=== PATIENT | female | born 1945 | race Caucasian/White ===

== ENCOUNTER → 2016-04-26 | Outpatient (REF) | payer MEDICARE | LOC: M LAB REF 16:30 | PROVIDERS: ATTEND Internal Medicine | DX: F03.90 Unspecified dementia, unspecified severity, without behavioral disturbance, psychotic disturbance, mood disturbance, and anxiety (principal) ==

== ENCOUNTER → 2017-04-08 | Outpatient (REF) | payer MEDICARE | LOC: M LAB REF 15:55 | DX: H16.003 Unspecified corneal ulcer, bilateral (principal) | CPT/HCPCS: 87102 ==

== ENCOUNTER 2018-07-14 11:13 | Emergency (ER) | payer MEDICARE, MEDICAID ==
[~2018-07-14] VITALS: Ht 154.9 cm; Wt 58.6 kg
[2018-07-14] MEDS ORDERED: CLAR10CA3 PO (12:01)
[2018-07-14] MEDS ORDERED: ARIC1TAB PO (12:01)
[2018-07-14] MEDS ORDERED: MEMA1TAB2 PO (12:02)
[2018-07-14] MEDS ORDERED: ATOR1TAB19 PO (12:02)
[2018-07-14] MEDS ORDERED: TRAZ-252 PO (12:02)
[2018-07-14] MEDS ORDERED: NYSTOI TOP (12:02)
[2018-07-14 12:08] LABS: BASO % 0.3 % (0.0-1.0); EOS % 0.1 % (0.0-3.0); HEMATOCRIT 40.3 % (36.0-47.0); HEMOGLOBIN 13.6 g/dl (12.0-15.5); LYMPH # 1.5 10^3/uL (1.5-4.5); LYMPH % 15.4 % (24.0-44.0); MEAN CORPUSCULAR HEMOGLOBIN 32.5 pg (27.0-33.0); MEAN CORPUSCULAR HGB CONC 33.7 g/dl (32.0-36.5); MEAN CORPUSCULAR VOLUME 96.2 fl (80.0-96.0); MONO # 0.4 10^3/uL (0.0-0.8); MONO % 4.4 % (0.0-5.0); NEUTROPHILS # 7.6 10^3/uL (1.8-7.7); NEUTROPHILS % 79.5 % (36.0-66.0); PLATELET COUNT, AUTOMATED 245 10^3/uL (150-450); RED BLOOD COUNT 4.19 10^6/uL (4.00-5.40); WHITE BLOOD COUNT 9.5 10^3/uL (4.0-10.0)
[2018-07-14 12:46] LABS: ALBUMIN 3.4 GM/DL (3.2-5.2); ALT/SGPT 12 U/L (12-78); BILIRUBIN,DIRECT 0.1 MG/DL (0.0-0.2); BILIRUBIN,TOTAL 0.6 MG/DL (0.2-1.0); BLOOD UREA NITROGEN 23 MG/DL (7-18); CALCIUM LEVEL 8.4 MG/DL (8.8-10.2); CARBON DIOXIDE LEVEL 26 MEQ/L (21-32); CHLORIDE LEVEL 107 MEQ/L (98-107); CPK CREATINE PHOSPHOKINASE 60 U/L (26-192); CREATININE FOR GFR 0.82 MG/DL (0.55-1.30); GLOMERULAR FILTRATION RATE > 60.0 (>39); GLUCOSE, FASTING 119 MG/DL (70-100); MB/CK RELATIVE INDEX 1.67 (< OR =4); POTASSIUM SERUM 3.8 MEQ/L (3.5-5.1); SODIUM LEVEL 140 MEQ/L (136-145); TOTAL PROTEIN 7.3 GM/DL (6.4-8.2); TROPONIN I < 0.02 NG/ML (< 0.10)
--- NOTE | 2018-07-14 13:01 | REP ---
Noncontrast brain CT: History: Altered mental status. Comparison MRI study is from April 30, 2016. CT findings: Preliminary digital house mother radiograph is unremarkable. Bone window settings demonstrate an intact bony calvarium. There is moderate vascular calcification in the distal vertebral and carotid arteries bilaterally. Visualized paranasal sinuses are clear. No intraorbital abnormality is seen. On soft tissue window settings, there is moderate diffuse cerebral atrophy. Small vessel atherosclerotic changes are seen in the periventricular white matter of the supratentorial brain bilaterally. There is concordant ventriculomegaly. Volume loss in the ventricular size findings are unchanged. There is no evidence of intracranial hemorrhage. No acute infarction is seen. No mass, extra-axial fluid collection or midline shift is seen. Impression: Diffuse moderate atrophy. Small vessel atherosclerotic changes in the periventricular white matter. Vascular calcification. No acute intracranial lesion. Electronically Signed by James Hilton MD 07/14/2018 06:26 P
[2018-07-14] MEDS ORDERED: ALL10TAB28 PO (15:15)
[2018-07-14] MEDS ORDERED: MECL1CHW PO (15:15)
[2018-07-14 15:34] VITALS: BP 118/65
--- NOTE | 2018-07-15 17:37 | ECGEPIP ---
Stationary ECG Study [facility] - ED Test Date: 2018-07-14 Pat Name: JAYE EDEN Department: Room: - Gender: F Raspberry Checker: bibi : [id number] Requested By: Tootie Solis Order Number: [id number] Reading MD: Tootie Solis Measurements Intervals [place] Rate: 49 P: 42 [place]: 144 QRS: 23 QRSD: 89 T: 7 QT: 435 QTc: 396 Interpretive Statements SINUS BRADYCARDIA MINIMAL ST DEPRESSION NO PRIOR FOR COMPARISON Electronically Signed On 07-15-2018 17:37:13 EDT by Tootie Solis
== END 2018-07-14 15:36 | disposition home or self-care (01) ==
LOC: M ED 11:13
DX: R42 Dizziness and giddiness (principal); J30.2 Other seasonal allergic rhinitis; R00.1 Bradycardia, unspecified; Z86.79 Personal history of other diseases of the circulatory system; F03.90 Unspecified dementia, unspecified severity, without behavioral disturbance, psychotic disturbance, mood disturbance, and anxiety; G31.9 Degenerative disease of nervous system, unspecified; I67.2 Cerebral atherosclerosis; Z79.899 Other long term (current) drug therapy

== ENCOUNTER 2020-01-04 19:46 | Inpatient (IN) | payer MEDICARE, MEDICAID ==
[~2020-01-04] VITALS: Ht 154.9 cm; Wt 54.3 kg
[~2020-01-04 19:46] MED LIST: ARIC1TAB PO; ATOR1TAB19 PO; CETI-24 PO; CLAR10CA3 PO; MECL1CHW PO; MEMA10TA19 PO; NYSTOI TOP; TRAZ-252 PO
[2020-01-04] MEDS ORDERED: ZYPR10TA PO (20:08)
[2020-01-04 21:17] LABS: HEMATOCRIT 37.5 % (36.0-47.0); HEMOGLOBIN 12.3 g/dl (12.0-15.5); MEAN CORPUSCULAR HEMOGLOBIN 31.3 pg (27.0-33.0); MEAN CORPUSCULAR HGB CONC 32.8 g/dl (32.0-36.5); MEAN CORPUSCULAR VOLUME 95.4 fl (80.0-96.0); PLATELET COUNT, AUTOMATED 222 10^3/uL (150-450); RED BLOOD COUNT 3.93 10^6/uL (4.00-5.40); WHITE BLOOD COUNT 7.8 10^3/uL (4.0-10.0)
--- NOTE | 2020-01-04 21:40 | REPVR ---
PROCEDURE INFORMATION: Exam: CT Cervical Spine Without Contrast Exam date and time: 01/04/2020 8:54 PM Age: 74 years old Clinical indication: Injury or trauma; Fall; Blunt trauma; Additional info: Fall, facial swelling TECHNIQUE: Imaging protocol: Computed tomography images of the cervical spine without contrast. Radiation optimization: All CT scans at this facility use at least one of these dose optimization techniques: automated exposure control; mA and/or kV adjustment per patient size (includes targeted exams where dose is matched to clinical indication); or iterative reconstruction. COMPARISON: No relevant prior studies available. FINDINGS: Vertebrae: No acute fracture. Grade 1 spondylolisthesis at C4-C5 with 2 mm retrolisthesis C5 with respect to C4. Grade 1 spondylolisthesis at C5-C6 with 2 anterolisthesis C6 with respect to C5 C2-C3: No significant disc protrusion. No severe spinal canal stenosis. No significant neural foraminal narrowing. C3-C4: No significant disc protrusion. No severe spinal canal stenosis. No significant neural foraminal narrowing. C4-C5: No significant disc protrusion. No severe spinal canal stenosis. No significant neural foraminal narrowing. C5-C6: Marked narrowing of the intervertebral disc space. Uncovertebral hypertrophy bilaterally moderate to severe right foraminal stenosis. Mild left foraminal stenosis.. No severe spinal canal stenosis. C6-C7: No significant disc protrusion. No severe spinal canal stenosis. No significant neural foraminal narrowing. C7-T1: No significant disc protrusion. No severe spinal canal stenosis. No significant neural foraminal narrowing. Soft tissues: Asymmetric thickening left lateral pharyngeal wall. Auditory system: Debris noted within the external auditory canal on the left Oropharynx: Oropharynx. Lungs: Lung apices are normal. IMPRESSION: 1. No acute findings. 2. Degenerative disc disease most severe at C5-C6. Bilateral foraminal stenosis. No central stenosis. 3. Asymmetric soft tissue thickening along the left lateral wall of the oropharynx. Direct visualization recommended. Electronically signed by: Danae Ramírez On 01/04/2020 21:39:53 PM
--- NOTE | 2020-01-04 21:44 | REPVR ---
PROCEDURE INFORMATION: Exam: CT Head Without Contrast Exam date and time: 01/04/2020 8:54 PM Age: 74 years old Clinical indication: Injury or trauma; Fall; Blunt trauma (contusions or hematomas); Additional info: Fall, facial swelling TECHNIQUE: Imaging protocol: Computed tomography of the head without contrast. Radiation optimization: All CT scans at this facility use at least one of these dose optimization techniques: automated exposure control; mA and/or kV adjustment per patient size (includes targeted exams where dose is matched to clinical indication); or iterative reconstruction. COMPARISON: CT Head without contrast 07/14/2018 11:14 AM FINDINGS: Brain: Severe generalized cerebral atrophy. Basal ganglia calcifications. Cerebellar atrophy. Patchy low-density in the periventricular white matter extending into the vargas radiata and the centrum semiovale bilaterally. No hemorrhage. No mass effect. Midline structures intact. Cerebral ventricles: No ventriculomegaly. Bones/joints: A fracture of the left nasal bone. Paranasal sinuses: Partial opacification of the ethmoid air cells bilaterally. Mastoid air cells: Visualized mastoid air cells are well aerated. Soft tissues: There is focal area soft tissue swelling over the right frontal bone. IMPRESSION: 1. No acute intracranial findings. 2. Advanced cerebral atrophy with advanced chronic microvascular ischemic change within the deep white matter 3. Fracture of the left nasal bone. 4. Superficial contusion suggested over the right frontal 5. Chronic ethmoid sinusitis Electronically signed by: Danae Ramírez On 01/04/2020 21:44:21 PM
--- NOTE | 2020-01-04 21:48 | REPVR ---
PROCEDURE INFORMATION: Exam: CT Maxillofacial Without Contrast Exam date and time: 01/04/2020 8:54 PM Age: 74 years old Clinical indication: Injury or trauma; Fall; Blunt trauma (contusions or hematomas); Forehead; Additional info: Fall, facial swelling TECHNIQUE: Imaging protocol: Computed tomography images of the face without contrast. Radiation optimization: All CT scans at this facility use at least one of these dose optimization techniques: automated exposure control; mA and/or kV adjustment per patient size (includes targeted exams where dose is matched to clinical indication); or iterative reconstruction. COMPARISON: No relevant prior studies available. FINDINGS: Orbital cavity: Orbits are normal. Globes are unremarkable. Bones/joints: Fracture of the left nasal bone. Paranasal sinuses: Patchy opacification of the ethmoid air cells bilaterally. Auditory system: Debris within the left external auditory canal. Soft tissues: Focal area soft tissue swelling over the right frontal bone. IMPRESSION: 1. Fracture of the left nasal bone. 2. Contusion over the right frontal bone. 3. Chronic ethmoid sinusitis. Electronically signed by: Danae Ramírez On 01/04/2020 21:48:12 PM
[2020-01-04] MEDS ORDERED: D5W 1,000 ML IV SCH ×2 (23:00→23:45)
[2020-01-04] MEDS ORDERED: ACETAMINOPHEN TAB 650MG DOSE (2X325MG) PO PRN (23:45)
[2020-01-04] MEDS ORDERED: PILL CUTTER 1 EACH XX PRN (23:45)
[2020-01-04] MEDS ORDERED: MAALOX 30 ML SUSP *UDC PO PRN (23:45)
[2020-01-04] MEDS ORDERED: LORATADINE 10 MG TAB PO PRN (23:45)
[2020-01-05 00:36] VITALS: BP 136/88
[2020-01-05] MEDS: OLANZapine 10 MG TAB PO SCH ×3 (01:23→20:23)
[2020-01-05] MEDS: DOCUSATE SODIUM 100 MG CAP PO SCH ×3 (01:24→20:23)
[2020-01-05] MEDS: traZODone 50 MG TAB PO SCH ×2 (01:25→20:23)
--- NOTE | 2020-01-05 01:25 | HPEPDOC ---
[facility] Medical History & Physical Date of Admission Jan 04, 2020 Date of Service: Jan 04, 2020 Primary Care Physician: YANNA DONIS DO Attending Physician: SARAI KRISHNA MD History and Physical CHIEF COMPLAINT: Fall HISTORY OF PRESENT ILLNESS: Patient is a 74-year-old female with a history of advanced dementia who presents to the emergency department after a fall. Patient was in the bathroom with one of her caretakers when she went to stand up and get her pants back on when she started leaning over and fell. The carpenter helper try to catch her but was unable to and she hit her face on the wall. The patient is unable to provide any history. Patient's son was present in the room and was able to provide most of the history. Patient's son says that she has been not eating that much and has been a little bit more wobbly on her feet over the past few days. Patient's son states that she has lost some weight over the past few days as well. Patient was found to be hypernatremic in the emergency department and hospitalist was called for admission. Patient was also found to have a nasal fracture on maxillofacial CT. PAST MEDICAL HISTORY: 1. History of hypertension. 2. Advanced dementia. 3. Seasonal allergies. PAST SURGICAL HISTORY: Son states that he is unsure exactly how many surgeries his mother has had but he knows that she had a partial hysterectomy at some point many years ago. SOCIAL HISTORY: Son states that his mother never smoked cigarettes, never drank heavily and never did any illicit drug use. Patient lives at home with her son. FAMILY HISTORY: Unable to obtain from patient ALLERGIES: Please see below. REVIEW OF SYSTEMS: Unable to obtain from patient. In talking with the patient's son he says his mom has not been complaining of anything other than some lower abdominal pain and she had not had a bowel movement in a few days. HOME MEDICATIONS: Please see below. PHYSICAL EXAMINATION: VITAL SIGNS: See below General: Alert but not oriented female who is laying in bed when I walked in the room. Patient did not appear to be in any acute distress. HEENT: Normocephalic, patient had a bruise of the bridge of her nose as well as a bruise on the right forehead. Neck: No lymphadenopathy or thyromegaly Cardiac: Regular rate and rhythm, no murmurs, normal S1, normal S2 Pulm: Clear to auscultation bilaterally. No wheezes, rhonchi, rales Abd: Nondistended, mild tenderness to palpation of the left lower quadrant. No rebound tenderness. Normoactive bowel sounds Ext: No edema bilateral lower extremities Skin: No evidence of rash. LABORATORY DATA: See below. IMAGING: A CT maxillofacial without contrast performed on 01/04/2020 was reported to show a fracture left nasal bone, contusion over the right frontal bone, chronic ethmoid sinusitis. A CT of the head performed without contrast 01/04/2020 was reported to show no acute intracranial findings, advanced cerebral atrophy with advanced chronic microvascular ischemic changes within the deep white matter. Fracture of the left nasal bone, superficial contusions suggested over the right frontal bone, chronic ethmoid sinusitis A CT of the cervical spine performed without contrast on 01/04/2020 was reported to show no acute findings, degenerative disc disease most severe at C5-C6. Bilateral foraminal stenosis, no central stenosis, asymmetric soft tissue thickening along the left lateral wall of the oropharynx, direct visualization recommended MICROBIOLOGY: Please see below. ASSESSMENT: Patient is a 74-year-old female who presented to the emergency department after a fall and was found to have a left nasal fracture. Patient was also found to be hypernatremic on lab studies of the patient was admitted in the hospital for further management. Patient's son is her healthcare proxy and he can be reached at [phone]. The patient's son's name is Luisito Mckeon PLAN: 1. Hypernatremia. Patient's initial sodium level was 157. Patient was initially started on D5W at 80 mL per hour. We are waiting for repeat laboratory work so we can titrate the amount of fluids patient is on. We'll monitor the patient's sodium level closely as to not cause cerebral edema. Due to the patient's dementia, is difficult to assess any changes in the patient's mental status h owever, the patient's son says that she is slightly worse than her normal. 2. Dementia. Patient is not oriented and can only answer simple questions. Patient is only on olanzapine for behavioral issues. This medication. 3. History of hypertension. Patient was taken off all her medications by her [facility] provider according to her son. We will monitor patient's blood pressure closely. 4. Left nasal bone fracture. At this point the patient's nose appears straight and does not appear to Be blocking her airway. This point we will just do pain control with Tylenol. 5. DVT prophylaxis: Heparin 6. CODE STATUS: Full code. Addendum: After the patient got up to the medical surgical floor, a repeat basic metabolic profile was obtained and showed that the patient's sodium level was within the normal range. The initial sodium level that was performed was a [id number] test. Because of the lab chemistry panel being within normal range, patient does not appear to be hypernatremic. Fluids were stopped at this time. Vital Signs Vital Signs Date Time Temp Pulse Resp B/P (MAP) Pulse Ox O2 Delivery O2 Flow Rate FiO2 01/05/20 00:36 97.9 72 18 136/88 (104) 97 Room Air Laboratory Data Labs 24H Laboratory Tests 2 01/04/20 21:06: Nucleated Red Blood Cells % (auto) 0.0 01/04/20 21:24: POC Glucose (Misc Panel) 89, POC Sodium (Misc Panel) 157H, POC Potassium (Misc Panel) 3.8, POC Chloride (Misc Panel) 100, POC Total CO2 (Misc Panel) 26.0, POC Blood Urea Nitrogen (Misc Panel 26, POC Ionized Calcium (Misc Panel) 5.3, POC Creatinine (Misc Panel) 0.9, POC Hematocrit (Misc Panel) 38.0 01/04/20 23:24: Urine Color STRAW, Urine Appearance HAZY, Urine pH 7.0, Urine Specific [place] 1.015, Urine Protein NEGATIVE, Urine Glucose (UA) NEGATIVE, Urine Ketones NEGATIVE, Urine Blood NEGATIVE, Urine Nitrite NEGATIVE, Urine Bilirubin NEG ATIVE, Urine Urobilinogen 0.2, Urine Leukocyte Esterase NEGATIVE, Urine WBC (Auto) 1, Urine RBC (Auto) 2, Urine Hyaline Casts (Auto) 0, Urine Bacteria (Auto) NEGATIVE, Urine Squamous Epithelial Cells 0, Urine Mucus (Auto) SMALL, Urine Sperm (Auto) CBC/BMP Laboratory Tests 01/04/20 21:06 Home Medications Scheduled Atorvastatin Calcium (Atorvastatin Calcium) 10 Mg Tablet, 10 MG PO DAILY Olanzapine (Zyprexa) 10 Mg Tablet, 10 MG PO BID Trazodone HCl (Trazodone HCl) 50 Mg Tablet, 75 MG PO QPM Scheduled PRN Loratadine (Claritin) 10 Mg Capsule, 10 MG PO DAILY PRN for allergies Allergies Coded Allergies: No Known Allergies (Unverified , 01/04/20) A-FIB/CHADSVASC A-FIB History Current/History of A-Fib/PAF?: No GME ATTESTATION GME ATTESTATION My faculty preceptor for this patient encounter was physically present during the encounter and was fully available. All aspects of the patient interview, examination, medical decision making process, and medical care plan development were reviewed and approved by the faculty preceptor. The faculty preceptor is aware and concurs with the plan as stated in the body of this note and will attest to such by his/her cosignature. RORO CRUZ DO Jan 05, 2020 01:25
[2020-01-05 02:19] LABS: BLOOD UREA NITROGEN 21 MG/DL (7-18); CARBON DIOXIDE LEVEL 24 MEQ/L (21-32); CHLORIDE LEVEL 107 MEQ/L (98-107); CREATININE FOR GFR 0.74 MG/DL (0.55-1.30); GLOMERULAR FILTRATION RATE > 60.0 (>39); GLUCOSE, FASTING 130 MG/DL (70-100); POTASSIUM SERUM 3.4 MEQ/L (3.5-5.1); SODIUM LEVEL 138 MEQ/L (136-145)
[2020-01-05 06:00] VITALS: BP 140/78
[2020-01-05] MEDS ORDERED: POTASSIUM CHLORIDE 10% LIQ 20 MEQ/15 ML UDC PO ONE (06:15)
[2020-01-05 06:39] LABS: BASO % 0.3 % (0.0-1.0); EOS % 0.3 % (0.0-3.0); HEMATOCRIT 40.2 % (36.0-47.0); HEMOGLOBIN 13.6 g/dl (12.0-15.5); LYMPH # 1.8 10^3/uL (1.5-5.0); LYMPH % 21.4 % (24.0-44.0); MEAN CORPUSCULAR HEMOGLOBIN 31.9 pg (27.0-33.0); MEAN CORPUSCULAR HGB CONC 33.8 g/dl (32.0-36.5); MEAN CORPUSCULAR VOLUME 94.1 fl (80.0-96.0); MONO # 0.4 10^3/uL (0.0-0.8); NEUTROPHILS # 6.2 10^3/uL (1.5-8.5); NEUTROPHILS % 72.8 % (36.0-66.0); PLATELET COUNT, AUTOMATED 221 10^3/uL (150-450); RED BLOOD COUNT 4.27 10^6/uL (4.00-5.40); WHITE BLOOD COUNT 8.6 10^3/uL (4.0-10.0)
[2020-01-05 06:55] LABS: BLOOD UREA NITROGEN 18 MG/DL (7-18); CALCIUM LEVEL 8.7 MG/DL (8.8-10.2); CARBON DIOXIDE LEVEL 29 MEQ/L (21-32); CHLORIDE LEVEL 105 MEQ/L (98-107); CREATININE FOR GFR 0.79 MG/DL (0.55-1.30); GLOMERULAR FILTRATION RATE > 60.0 (>39); GLUCOSE, FASTING 109 MG/DL (70-100); POTASSIUM SERUM 3.6 MEQ/L (3.5-5.1); SODIUM LEVEL 137 MEQ/L (136-145)
[2020-01-05] MEDS: HEPARIN SOD (PORCINE) 5000UNITS/ML 1ML VIAL/SYRINGE SC SCH ×2 (11:20→20:23)
[2020-01-05] MEDS: ATORVASTATIN 10 MG TAB PO SCH (11:20)
[2020-01-05 14:00] VITALS: BP 124/75
[2020-01-05] MEDS ORDERED: MIRALAX *UNIT DOSE* 17GM PACKET PO PRN (18:15)
--- NOTE | 2020-01-05 18:51 | IPNPDOC ---
Date Seen The patient was seen on 01/05/20. Progress Note SUBJECTIVE: Assessed by PT, can return to prior living situation when medically cleared. Sodium wnl this AM. Very confused; however, after speaking with son and caregiver this is baseline. Addressing constipation. OBJECTIVE: PHYSICAL EXAMINATION: VITAL SIGNS: See below General: Alert, not oriented to place, reason for admission, time, date, self. HEENT: Normocephalic, patient had a bruise of the bridge of her nose as well as a bruise on the right forehead. Small laceration on the bridge of her nose also Neck: No lymphadenopathy or thyromegaly, no JVD Cardiac: Regular rate and rhythm, no murmurs, normal S1, normal S2 Pulm: Clear to auscultation bilaterally. No wheezes, rhonchi, rales Abd: Nondistended, mild tenderness to palpation of the left lower quadrant. No rebound tenderness. Normoactive bowel sounds Ext: No edema bilateral lower extremities Skin: No evidence of rash. neuro: Would not participate in CN exam, does not follow directions well. Nofocal deficits Psych: Flat affect LABORATORY DATA: See below. IMAGING: CT maxillofacial without contrast performed on 01/04/2020: fracture left nasal bone, contusion over the right frontal bone, chronic ethmoid sinusitis. CT of the head performed without contrast 01/04/2020: no acute intracranial findings, advanced cerebral atrophy with advanced chronic microvascular ischemic changes within the deep white matter. Fracture of the left nasal bone, superficial contusions suggested over the right frontal bone, chronic ethmoid sinusitis CT of the cervical spine performed without contrast on 01/04/2020: No acute findings, degenerative disc disease most severe at C5-C6. Bilateral foraminal stenosis, no central stenosis, asymmetric soft tissue thickening along the left lateral wall of the oropharynx, direct visualization recommended MICROBIOLOGY: Please see below. ASSESSMENT: Patient is a 74-year-old female admitted for acute hypernatremia, fall, left nasal fracture. PLAN: 1. Acute hypernatremia likely 2/2 to decreased PO intake from advancing dementia -Sodium 137 this AM, decreased from 157. At this time we are highly suspicious that the POC test of 157 was likely to have read this too high. -She was on D5W at 80 mL per hour for only a short period of time then it was stopped. -Encouraging PO intake with fluids Q2hrs while awake -Daily sodium 2. Decreased appetite and PO intake likely 2/2 to advancing dementia -Eats very little, needs to be fed and prompted -Likely can be addressed with PCP after discharge, would benefit from cotton ball machine tender evaluation and also appetite stimulant if she can tolerate. -Encouraging PO intake with fluids Q2hrs while awake 3. Advanced dementia with behaviors -Currently at baseline -Her PCP, according to her son, has recently changed her dementia medications around. -C/w olanzapine, redirection whenever possible 4. Left nasal bone fracture -No surgery -C/w pain control with Tylenol PRN. 5. Hx hypertension -Stable. Taken off meds by PCP -Monitor 6. DVT prophylaxis - Heparin DISPOSITION: Her son Luisito was updated this evening. If labs ok by AM, will discharge home with son to f/u with PCP. PT: safe to return to prior living situation VS, I&O, 24H, Fishbone Vital Signs/I&O Vital Signs Date Time Temp Pulse Resp B/P (MAP) Pulse Ox O2 Delivery O2 Flow Rate FiO2 01/05/20 14:00 63 15 124/75 (91) 97 Room Air 01/05/20 06:00 97.4 I&O- Last 24 Hours up to 6 AM 01/05/20 06:00 Intake Total 150 ml Output Total 250 ml Balance -100 ml Laboratory Data 24H LABS Laboratory Tests 2 01/04/20 21:06: Nucleated Red Blood Cells % (auto) 0.0 01/04/20 21:24: POC Glucose (Misc Panel) 89, POC Sodium (Misc Panel) 157H, POC Potassium (Misc Panel) 3.8, POC Chloride (Misc Panel) 100, POC Total CO2 (Misc Panel) 26.0, POC Blood Urea Nitrogen (Misc Panel 26, POC Ionized Calcium (Misc Panel) 5.3, POC Creatinine (Misc Panel) 0.9, POC Hematocrit (Misc Panel) 38.0 01/04/20 23:24: Urine Color STRAW, Urine Appearance HAZY, Urine pH 7.0, Urine Specific [place] 1.015, Urine Protein NEGATIVE, Urine Glucose (UA) NEGATIVE, Urine Ketones NEGATIVE, Urine Blood NEGATIVE, Urine Nitrite NEGATIVE, Urine Bilirubin NEGATIVE, Urine Urobilinogen 0.2, Urine Leukocyte Esterase NEGATIVE, Urine WBC (Auto) 1, Urine RBC (Auto) 2, Urine Hyaline Casts (Auto) 0, Urine Bacteria (Auto) NEGATIVE, Urine Squamous Epithelial Cells 0, Urine Mucus (Auto) SMALL, Urine Sperm (Auto) 01/05/20 01:11: Anion Gap 7L, Glomerular Filtration Rate > 60.0, Calcium Level 9.0 01/05/20 06:13: Immature Granulocyte % (Auto) 0.2, Neutrophils (%) (Auto) 72.8H, Lymphocytes (%) (Auto) 21.4L, Monocytes (%) (Auto) 5.0, Eosinophils (%) (Auto) 0.3, Basophils (%) (Auto) 0.3, Neutrophils # (Auto) 6.2, Lymphocytes # (Auto) 1.8, Monocytes # (Auto) 0.4, Eosinophils # (Auto) 0.0, Basophils # (Auto) 0.0, Nucleated Red Blood Cells % (auto) 0.0, Anion Gap 3L, Glomerular Filtration Rate > 60.0, Calcium Level 8.7L, Magnesium Level 2.2 CBC/BMP Laboratory Tests 01/04/20 21:06 01/05/20 01:11 01/05/20 06:13 Current Medications Current Medications Medications (Trade) Dose Ordered Sig/Rina Route PRN Reason Start Time Stop Time Status Last Admin Dose Admin Acetaminophen (Tylenol Tab) 650 mg Q4H PRN PO PAIN OR FEVER 01/04/20 23:45 Al Hydrox/Mg Hydrox/Simethicone (Mylanta) 30 ml DAILY PRN PO DYSPEPSIA 01/04/20 23:45 Atorvastatin Calcium (Lipitor) 10 mg DAILY PO 01/05/20 09:00 01/05/20 11:20 Dextrose/Water 1,000 ml @ 80 mls/hr [id number] IV 01/04/20 23:00 01/04/20 23:52 DC 01/04/20 23:42 Dextrose/Water 1,000 ml @ 80 mls/hr [id number] IV 01/04/20 23:45 01/05/20 02:35 DC 01/05/20 01:23 Docusate Sodium (Colace) 100 mg BID PO 01/04/20 21:00 01/05/20 11:20 Heparin Sodium (Porcine) (Heparin) 5,000 units Q12H SC 01/05/20 09:00 01/05/20 11:20 Home Med (Med Rec Complete!) ASDIRECTED XX 01/04/20 23:45 01/04/20 23:43 DC Loratadine (Claritin) 10 mg DAILY PRN PO allergies 01/04/20 23:45 Olanzapine (ZyPREXA) 10 mg BID PO 01/04/20 21:00 01/05/20 11:20 Polyethylene Glycol (Miralax) 1 pkt DAILYPRN PRN PO CONSTIPATION 01/05/20 18:15 Senna (Senokot) 1 tab QHS PO 01/05/20 21:00 Trazodone HCl (Desyrel) 75 mg QPM PO 01/04/20 21:00 01/05/20 01:25 Allergies Coded Allergies: No Known Allergies (Unverified , 01/04/20) Lacy Velasco MD Jan 05, 2020 18:51
[2020-01-05] MEDS ORDERED: DOCU100C16 PO (18:58)
[2020-01-05] MEDS ORDERED: PEG1POW PO (18:58)
[2020-01-05] MEDS ORDERED: ACET1TAB55 PO (18:58)
[2020-01-05] MEDS: SENNA 8.6 MG TAB (SENOKOT) PO SCH (20:23)
[2020-01-05 22:00] VITALS: BP 144/82
[2020-01-06 06:00] VITALS: BP 148/80
[2020-01-06 06:15] LABS: BASO % 0.3 % (0.0-1.0); EOS # 0.1 10^3/uL (0.0-0.5); EOS % 0.8 % (0.0-3.0); HEMATOCRIT 41.1 % (36.0-47.0); HEMOGLOBIN 13.7 g/dl (12.0-15.5); LYMPH % 31.4 % (24.0-44.0); MEAN CORPUSCULAR HEMOGLOBIN 31.2 pg (27.0-33.0); MEAN CORPUSCULAR HGB CONC 33.3 g/dl (32.0-36.5); MEAN CORPUSCULAR VOLUME 93.6 fl (80.0-96.0); MONO # 0.4 10^3/uL (0.0-0.8); MONO % 6.1 % (0.0-5.0); NEUTROPHILS # 3.8 10^3/uL (1.5-8.5); NEUTROPHILS % 61.2 % (36.0-66.0); PLATELET COUNT, AUTOMATED 222 10^3/uL (150-450); RED BLOOD COUNT 4.39 10^6/uL (4.00-5.40); WHITE BLOOD COUNT 6.2 10^3/uL (4.0-10.0)
[2020-01-06 06:41] LABS: BLOOD UREA NITROGEN 17 MG/DL (7-18); CALCIUM LEVEL 8.8 MG/DL (8.8-10.2); CARBON DIOXIDE LEVEL 24 MEQ/L (21-32); CHLORIDE LEVEL 107 MEQ/L (98-107); CREATININE FOR GFR 0.87 MG/DL (0.55-1.30); GLOMERULAR FILTRATION RATE > 60.0 (>39); GLUCOSE, FASTING 107 MG/DL (70-100); MAGNESIUM LEVEL 2.3 MG/DL (1.8-2.4); SODIUM LEVEL 139 MEQ/L (136-145)
[2020-01-06] MEDS: HEPARIN SOD (PORCINE) 5000UNITS/ML 1ML VIAL/SYRINGE SC SCH ×2 (09:41→21:40)
[2020-01-06] MEDS: DOCUSATE SODIUM 100 MG CAP PO SCH ×2 (09:41→19:58)
[2020-01-06] MEDS: OLANZapine 10 MG TAB PO SCH (09:41)
[2020-01-06] MEDS: ATORVASTATIN 10 MG TAB PO SCH (09:41)
[2020-01-06] MEDS ORDERED: LACTULOSE 20 GM/30 ML SYRUP UD PO ONE (10:00)
[2020-01-06 14:00] VITALS: BP 138/76
--- NOTE | 2020-01-06 15:10 | DS.PDOC ---
Discharge Summary General Date of Admission Jan 04, 2020 at 23:12 Date of Discharge 01/06/20 Attending Physician: Lacy Velasco MD Discharge Summary HISTORY OF PRESENT ILLNESS: Patient is a 74-year-old female with a history of advanced dementia who presents to the emergency department after a fall. Patient was in the bathroom with one of her caretakers when she went to stand up and get her pants back on when she started leaning over and fell. The desk lieutenant try to catch her but was unable to and she hit her face on the wall. The patient is unable to provide any history. Patient's son was present in the room and was able to provide most of the history. Patient's son says that she has been not eating that much and has been a little bit more wobbly on her feet over the past few days. Patient's son states that she has lost some weight over the past few days as well. Patient was found to be hypernatremic in the emergency department and hospitalist was called for admission. Patient was also found to have a nasal fracture on maxillofacial CT. HOSPITAL COURSE: Upon arrival to the middle floor, sodium was found to be 137 and within normal range. D5 water IV fluids were stopped. Fluids were encouraged by mouth every 2 hours while awake. She also had to be helped eating as her appetite has been very poor in general for the past year or so. Spoke at great length with her son who states that they have not spoke with the primary care physician about her overall decline in the past several months more pronounced than over the past year. I expressed how my thoughts were that this was likely advancing dementia and that perhaps an appetite stimulant may be beneficial. As we do not follow these patients outside the hospital, I feel they're best bet would be to discuss with PCP who can follow her safely on an appetite stimulant. It also may be beneficial for her to have a nutritional assessment. Per physical therapy notes: She lives with her son who provides 24/7 supervision/assist, though has respite care and was with a caregiver when she fell. Jil is mostly sedentary at home. Her son wakes her up at 9:30-10 am and assists her with a shower and breakfast. He then assists her every 2 hours to the bathroom. He provides hand hold assist as she does not use the RW. Required max Ax2 for sup sit. We were unable to assist patient with sit > stand as she would not attempt. Significant right lateral lean sitting at EOB. Recommended Home w/Prev Level of Care. As acute hypernatremia had resolved and patient was believed to be at baseline, her son was updated. on 01/06/20 patient was discharged home to f/u with PCP as o/p. PAST MEDICAL HISTORY: 1. History of hypertension. 2. Advanced dementia. 3. Seasonal allergies. PAST SURGICAL HISTORY: Son states that he is unsure exactly how many surgeries his mother has had but he knows that she had a partial hysterectomy at some point many years ago. SOCIAL HISTORY: Son states that his mother never smoked cigarettes, never drank heavily and never did any illicit drug use. Patient lives at home with her son. FAMILY HISTORY: Unable to obtain from patient ALLERGIES: Please see below. DISCHARGE MEDICATIONS: Please see below. PHYSICAL EXAMINATION: VITAL SIGNS: See below General: Alert, not oriented to place, reason for admission, time, date, self- BASELINE HEENT: Normocephalic, patient had a bruise of the bridge of her nose as well as a bruise on the right forehead. Small laceration on the bridge of her nose also Neck: No lymphadenopathy or thyromegaly, no JVD Cardiac: Regular rate and rhythm, no murmurs, normal S1, normal S2 Pulm: Clear to auscultation bilaterally. No wheezes, rhonchi, rales Abd: Nondistended, mild tenderness to palpation of the left lower quadrant. No rebound tenderness. Normoactive bowel sounds Ext: No edema bilateral lower extremities Skin: No evidence of rash. neuro: Would not participate in CN exam, does not follow directions well. Nofocal deficits Psych: Flat affect LABORATORY DATA: See below. IMAGING: CT maxillofacial without contrast performed on 01/04/2020: fracture left nasal bone, contusion over the right frontal bone, chronic ethmoid sinusitis. CT of the head performed without contrast 01/04/2020: no acute intracranial findings, advanced cerebral atrophy with advanced chronic microvascular ischemic changes within the deep white matter. Fracture of the left nasal bone, superficial contusions suggested over the right frontal bone, chronic ethmoid s inusitis CT of the cervical spine performed without contrast on 01/04/2020: No acute findings, degenerative disc disease most severe at C5-C6. Bilateral foraminal stenosis, no central stenosis, asymmetric soft tissue thickening along the left lateral wall of the oropharynx, direct visualization recommended MICROBIOLOGY: Please see below. ASSESSMENT: Patient is a 74-year-old female admitted for acute hypernatremia, fall, left nasal fracture who is being discharged today home with son. PLAN: 1. Acute hypernatremia likely 2/2 to decreased PO intake from advancing dementia- resolved -Sodium 137 this AM, decreased from 157. At this time we are highly suspicious that the POC test of 157 was likely to have read this too high. -She was on D5W at 80 mL per hour for only a short period of time then it was stopped. -Encouraging PO intake with fluids Q2hrs while awake 2. Decreased appetite and PO intake likely 2/2 to advancing dementia -Eats very little, needs to be fed and prompted -Likely can be addressed with PCP after discharge, would benefit from service observer chief evaluation and also appetite stimulant if she can tolerate/is candidate. -Would recommend son to c/w encouraging PO intake with fluids Q2hrs while awake 3. Advanced dementia with behaviors -Currently at baseline -Her PCP, according to her son, has recently changed her dementia medications around. -C/w olanzapine, redirection whenever possible 4. Left nasal bone fracture -No surgery -Tylenol PRN. 5. Hx hypertension -Stable. Taken off meds by PCP DISPOSITION: Her son Luisito was updated 01/05/20. Discharge home today with son to f/u with PCP. PT: safe to return to prior living situation TIME SPENT ON DISCHARGE: Greater than 30 minutes. Vital Signs/I&Os Vital Signs Date Time Temp Pulse Resp B/P (MAP) Pulse Ox O2 Delivery O2 Flow Rate FiO2 01/06/20 06:00 98.2 71 17 148/80 (102) 96 Room Air I&O- Last 24 Hours up to 6 AM 01/06/20 06:00 Intake Total 720 ml Output Total 0 ml Balance 720 ml Laboratory Data Labs 24H Laboratory Tests 2 01/06/20 05:44: Immature Granulocyte % (Auto) 0.2, Neutrophils (%) (Auto) 61.2, Lymphocytes (%) (Auto) 31.4, Monocytes (%) (Auto) 6.1H, Eosinophils (%) (Auto) 0.8, Basophils (%) (Auto) 0.3, Neutrophils # (Auto) 3.8, Lymphocytes # (Auto) 2.0, Monocytes # (Auto) 0.4, Eosinophils # (Auto) 0.1, Basophils # (Auto) 0.0, Nucleated Red Blood Cells % (auto) 0.0, Anion Gap 8, Glomerular Filtration Rate > 60.0, Calcium Level 8.8, Magnesium Level 2.3 CBC/BMP Laboratory Tests 01/06/20 05:44 Discharge Medications Scheduled Atorvastatin Calcium (Atorvastatin Calcium) 10 Mg Tablet, 10 MG PO DAILY, (Reported) Docusate Sodium (Docusate Sodium) 100 Mg Capsule, 100 MG PO BID Olanzapine (Zyprexa) 10 Mg Tablet, 10 MG PO BID, (Reported) Trazodone HCl (Trazodone HCl) 50 Mg Tablet, 75 MG PO QPM, (Reported) Scheduled PRN Acetaminophen (Acetaminophen) 325 Mg Tablet, 650 MG PO Q6HP PRN for PAIN OR FEVER Loratadine (Claritin) 10 Mg Capsule, 10 MG PO DAILY PRN for allergies, (Reported) Polyethylene Glycol 3350 (Polyethylene Glycol 3350) 17 Gm Powd.pack, 1 PKT PO DAILYPRN PRN for CONSTIPATION Allergies Coded Allergies: No Known Allergies (Unverified , 01/04/20) Lacy Velasco MD Jan 06, 2020 15:10
[2020-01-06] MEDS ORDERED: PREVNAR 13 VACCINE SYRINGE IM ONE (17:00)
[2020-01-06] MEDS: NS 1,000 ML IV SCH (19:58)
[2020-01-06] MEDS: SENNA 8.6 MG TAB (SENOKOT) PO SCH (19:59)
[2020-01-06] MEDS ORDERED: OLANZapine 10 MG TAB PO SCH (21:00)
[2020-01-06] MEDS: traZODone 50 MG TAB PO SCH (21:00)
[2020-01-06 22:00] VITALS: BP 131/80
[2020-01-07] MEDS: NS 1,000 ML IV SCH ×2 (05:25→14:59)
[2020-01-07 06:00] VITALS: BP 128/77
[2020-01-07 07:02] LABS: BASO % 0.2 % (0.0-1.0); EOS % 0.1 % (0.0-3.0); HEMOGLOBIN 12.8 g/dl (12.0-15.5); LYMPH % 22.2 % (24.0-44.0); MEAN CORPUSCULAR HEMOGLOBIN 31.9 pg (27.0-33.0); MEAN CORPUSCULAR HGB CONC 33.7 g/dl (32.0-36.5); MEAN CORPUSCULAR VOLUME 94.8 fl (80.0-96.0); MONO # 0.7 10^3/uL (0.0-0.8); MONO % 8.2 % (0.0-5.0); NEUTROPHILS # 6.2 10^3/uL (1.5-8.5); NEUTROPHILS % 69.1 % (36.0-66.0); PLATELET COUNT, AUTOMATED 216 10^3/uL (150-450); RED BLOOD COUNT 4.01 10^6/uL (4.00-5.40); WHITE BLOOD COUNT 8.9 10^3/uL (4.0-10.0)
[2020-01-07 07:29] LABS: BLOOD UREA NITROGEN 25 MG/DL (7-18); CALCIUM LEVEL 8.8 MG/DL (8.8-10.2); CARBON DIOXIDE LEVEL 23 MEQ/L (21-32); CHLORIDE LEVEL 111 MEQ/L (98-107); CREATININE FOR GFR 0.74 MG/DL (0.55-1.30); GLOMERULAR FILTRATION RATE > 60.0 (>39); GLUCOSE, FASTING 97 MG/DL (70-100); MAGNESIUM LEVEL 2.3 MG/DL (1.8-2.4); POTASSIUM SERUM 3.9 MEQ/L (3.5-5.1); SODIUM LEVEL 142 MEQ/L (136-145)
[2020-01-07] MEDS ORDERED: OLANZapine 2.5MG TABLET PO SCH (09:00)
[2020-01-07] MEDS: DOCUSATE SODIUM 100 MG CAP PO SCH ×2 (09:55→20:04)
[2020-01-07] MEDS: HEPARIN SOD (PORCINE) 5000UNITS/ML 1ML VIAL/SYRINGE SC SCH ×2 (09:56→20:05)
[2020-01-07] MEDS: ATORVASTATIN 10 MG TAB PO SCH (09:56)
[2020-01-07 14:00] VITALS: BP 123/75
--- NOTE | 2020-01-07 15:32 | IPNPDOC ---
Date Seen The patient was seen on 01/07/20. Progress Note PROGRESS NOTE FOR 01/06/20 SUBJECTIVE: Earlier in the day around 8:45 patient was more awake and alert, ate small amount of breakfast. She still had not had BM so lactulose was given x 1. Discharge order put in early AM. Was notified that later in the day after 6 pM, family came to get patient but she was very weak, not communicating well, lethargic. Discharge was postponed. later in the evening after 8 PM, I received a notice that patient's son further verified her medication reconciliation list : we have had her on zyprexa 10 mg PO BID but home dose is actually zyprexa 2.5 mg PO BID. This is likely what has caused patient to be weak, not responsive at times and noncommunicative. She will be monitored closely as the half-life for zyprexa + her age put this drug clearing her system at 6 days or 01/12/20. OBJECTIVE: PHYSICAL EXAMINATION done at 8:45 AM 01/06/20: VITAL SIGNS: See below General: Alert, not oriented to place, reason for admission, time, date, self- BASELINE HEENT: Normocephalic, patient had a bruise of the bridge of her nose as well as a bruise on the right forehead. Small laceration on the bridge of her nose also Neck: No lymphadenopathy or thyromegaly, no JVD Cardiac: Regular rate and rhythm, no murmurs, normal S1, normal S2 Pulm: Clear to auscultation bilaterally. No wheezes, rhonchi, rales Abd: Nondistended, mild tenderness to palpation of the left lower quadrant. No rebound tenderness. Normoactive bowel sounds Ext: No edema bilateral lower extremities Skin: No evidence of rash. neuro: Would not participate in CN exam, does not follow directions well. No focal deficits Psych: Flat affect LABORATORY DATA: See below. IMAGING: CT maxillofacial without contrast performed on 01/04/2020: fracture left nasal bone, contusion over the right frontal bone, chronic ethmoid sinusitis. CT of the head performed without contrast 01/04/2020: no acute intracranial findings, advanced cerebral atrophy with advanced chronic microvascular ischemic changes within the deep white matter. Fracture of the left nasal bone, superficial contusions suggested over the right frontal bone, chronic ethmoid sinusitis CT of the cervical spine performed without contrast on 01/04/2020: No acute findings, degenerative disc disease most severe at C5-C6. Bilateral foraminal stenosis, no central stenosis, asymmetric soft tissue thickening along the left lateral wall of the oropharynx, direct visualization recommended MICROBIOLOGY: Please see below. ASSESSMENT: Patient is a 74-year-old female admitted for acute hypernatremia, fall, left nasal fracture who is being discharged today home with son. PLAN: #Increased somnolence likely 2/2 nonintentional zyprexa overdosing -Patient wakes up to eat food, approx 25% of meals but will sleep during the day a good amount according to nursing. -Per pharmacy, they were given dose of zyprexa by son over the phone. -Stop zyprexa, trazodone HS. Need to hold off zyprexa until 01/12/20, can restart at lower dose if behaviors resume. Hold trazodone. -Started IVFs, monitor closely for changes in mental status -Hold off PT/OT until patient more awake and alert. -If she wakes up and is found safe to eat then can feed her. #Decreased appetite and PO intake likely 2/2 to advancing dementia, more acutely likely 2/2 to zyprexa overdose -Eats very little, needs to be fed and prompted -Likely can be addressed with PCP after discharge, would benefit from solar hot water installer evaluation and also appetite stimulant if she can tolerate/is candidate. -Would recommend son to c/w encouraging PO intake with fluids Q2hrs while awake #Advanced dementia with behaviors -Holding zyprexa, redirection whenever possible #Left nasal bone fracture -No surgery -Tylenol PRN. #Hx hypertension -Stable. Taken off meds by PCP Resolved Issues: #Acute hypernatremia likely 2/2 to decreased PO intake from advancing dementia DISPOSITION: Discharge held off, monitoring closely VS, I&O, 24H, [place] Vital Signs/I&O Vital Signs Date Time Temp Pulse Resp B/P (MAP) Pulse Ox O2 Delivery O2 Flow Rate FiO2 01/07/20 14:00 97.0 73 17 123/75 (91) 96 Room Air I&O- Last 24 Hours up to 6 AM 01/07/20 05:59 Intake Total 1251 ml Output Total 0 ml Balance 1251 ml Laboratory Data 24H LABS Laboratory Tests 2 01/07/20 06:42: Immature Granulocyte % (Auto) 0.2, Neutrophils (%) (Auto) 69.1H, Lymphocytes (%) (Auto) 22.2L, Monocytes (%) (Auto) 8.2H, Eosinophils (%) (Auto) 0.1, Basophils (%) (Auto) 0.2, Neutrophils # (Auto) 6.2, Lymphocytes # (Auto) 2.0, Monocytes # (Auto) 0.7, Eosinophils # (Auto) 0.0, Basophils # (Auto) 0.0, Nucleated Red Blood Cells % (auto) 0.0, Anion Gap 8, Glomerular Filtration Rate > 60.0, Calcium Level 8.8, Magnesium Level 2.3 CBC/BMP Laboratory Tests 01/07/20 06:42 Lacy Velasco MD Jan 07, 2020 15:32
--- NOTE | 2020-01-07 15:41 | IPNPDOC ---
Date Seen The patient was seen on 01/07/20. Progress Note SUBJECTIVE: Spoke with the patient's son at great length this morning. He again verified that the Zyprexa 10 mg by mouth twice a day is much more than her home dose of 2.5 by mouth twice a day. I followed up with pharmacy who is looking into this thoroughly and has already addressed issue within department. The patient is awake this morning for approximately 25 minutes to eat breakfast, sitting up in bed. She later took a nap quickly after that. On my assessment the patient remains somnolent, in no distress. Decision was made to hold Zyprexa until 01/12/2020 and to discontinue nightly trazodone as well. Physical therapy will hold off working with patient until she is more awake and alert. OBJECTIVE: PHYSICAL EXAMINATION: VITAL SIGNS: See below General: Resting in bed, arousable with loud stimuli. HEENT: Normocephalic, patient had a bruise of the bridge of her nose as well as a bruise on the right forehead. Small laceration on the bridge of her nose also Neck: No lymphadenopathy or thyromegaly, no JVD Cardiac: Regular rate and rhythm, no murmurs, normal S1, normal S2 Pulm: Clear to auscultation bilaterally. No wheezes, rhonchi, rales Abd: Nondistended, mild tenderness to palpation of the left lower quadrant. No rebound tenderness. Normoactive bowel sounds Ext: No edema bilateral lower extremities Skin: No evidence of rash. neuro: No focal deficits LABORATORY DATA: See below. IMAGING: CT maxillofacial without contrast performed on 01/04/2020: fracture left nasal b one, contusion over the right frontal bone, chronic ethmoid sinusitis. CT of the head performed without contrast 01/04/2020: no acute intracranial findings, advanced cerebral atrophy with advanced chronic microvascular ischemic changes within the deep white matter. Fracture of the left nasal bone, superficial contusions suggested over the right frontal bone, chronic ethmoid sinusitis CT of the cervical spine performed without contrast on 01/04/2020: No acute findings, degenerative disc disease most severe at C5-C6. Bilateral foraminal stenosis, no central stenosis, asymmetric soft tissue thickening along the left lateral wall of the oropharynx, direct visualization recommended MICROBIOLOGY: Please see below. ASSESSMENT: Patient is a 74-year-old female admitted for acute hypernatremia, fall, left nasal fracture who is being discharged today home with son. PLAN: #Increased somnolence likely 2/2 nonintentional zyprexa overdosing -Patient ate approx 50% of breakfast, sitting up in bed but shortly became sleepy. -According to her son she does not sleep most of the day at home. -Plan is to continue to hold zyprexa, trazodone HS. Need to hold off zyprexa until 01/12/20, can restart at lower dose if behaviors resume. -C/w IVFs at 85 cc/hr, monitor closely for changes in mental status -Hold off PT/OT until patient more awake and alert. -If she wakes up and is found safe to eat then can feed her. #Decreased appetite and PO intake likely 2/2 to advancing dementia, more acutely likely 2/2 to zyprexa overdose -Patient needs to be fed and prompted, reminded food is on plate at times -Likely can be addressed with PCP after discharge -When she is more awake, she would benefit from strike out machine operator evaluation -An appetite stimulant may be possibility if she can tolerate/is candidate. -C/w encouraging PO intake with fluids Q2hrs while awake #Advanced dementia with behaviors -Holding zyprexa, redirection whenever possible -If behaviors start before 01/12/20, can restart low dose zyprexa #Left nasal bone fracture -No surgery -Tylenol PRN. #Hx hypertension -Stable. Taken off meds by PCP Resolved Issues: #Acute hypernatremia likely 2/2 to decreased PO intake from advancing dementia DISPOSITION: C/w treatment above. Will update son later today as well. Plan is to keep until patient is at baseline functionally then d/c home. Monitor for other changes. VS, I&O, 24H, Fishbone Vital Signs/I&O Vital Signs Date Time Temp Pulse Resp B/P (MAP) Pulse Ox O2 Delivery O2 Flow Rate FiO2 01/07/20 14:00 97.0 73 17 123/75 (91) 96 Room Air I&O- Last 24 Hours up to 6 AM 01/07/20 05:59 Intake Total 1251 ml Output Total 0 ml Balance 1251 ml Laboratory Data 24H LABS Laboratory Tests 2 01/07/20 06:42: Immature Granulocyte % (Auto) 0.2, Neutrophils (%) (Auto) 69.1H, Lymphocytes (%) (Auto) 22.2L, Monocytes (%) (Auto) 8.2H, Eosinophils (%) (Auto) 0.1, Basophils (%) (Auto) 0.2, Neutrophils # (Auto) 6.2, Lymphocytes # (Auto) 2.0, Monocytes # (Auto) 0.7, Eosinophils # (Auto) 0.0, Basophils # (Auto) 0.0, Nucleated Red Blood Cells % (auto) 0.0, Anion Gap 8, Glomerular Filtration Rate > 60.0, Calcium Level 8.8, Magnesium Level 2.3 CBC/BMP Laboratory Tests 01/07/20 06:42 Current Medications Current Medications Medications (Trade) Dose Ordered Sig/Rina Route PRN Reason Start Time Stop Time Status Last Admin Dose Admin Acetaminophen (Tylenol Tab) 650 mg Q4H PRN PO PAIN OR FEVER 01/04/20 23:45 Al Hydrox/Mg Hydrox/Simethicone (Mylanta) 30 ml DAILY PRN PO DYSPEPSIA 01/04/20 23:45 Atorvastatin Calcium (Lipitor) 10 mg DAILY PO 01/05/20 09:00 01/07/20 09:56 Dextrose/Water 1,000 ml @ 80 mls/hr [id number] IV 01/04/20 23:00 01/04/20 23:52 DC 01/04/20 23:42 Dextrose/Water 1,000 ml @ 80 mls/hr [id number] IV 01/04/20 23:45 01/05/20 02:35 DC 01/05/20 01:23 Docusate Sodium (Colace) 100 mg BID PO 01/04/20 21:00 01/07/20 09:55 Heparin Sodium (Porcine) (Heparin) 5,000 units Q12H SC 01/05/20 09:00 01/07/20 09:56 Home Med (Med Rec Complete!) ASDIRECTED XX 01/04/20 23:45 01/04/20 23:43 DC Loratadine (Claritin) 10 mg DAILY PRN PO allergies 01/04/20 23:45 Olanzapine (ZyPREXA) 2.5 mg BID PO 01/06/20 21:00 01/06/20 22:50 DC Olanzapine (ZyPREXA) 2.5 mg BID PO 01/07/20 09:00 01/07/20 08:00 DC Olanzapine (ZyPREXA) 10 mg BID PO 01/04/20 21:00 01/06/20 20:54 DC 01/06/20 09:41 Polyethylene Glycol (Miralax) 1 pkt DAILYPRN PRN PO CONSTIPATION 01/05/20 18:15 Senna (Senokot) 1 tab QHS PO 01/05/20 21:00 01/05/20 20:23 Sodium Chloride 1,000 ml @ 100 mls/hr Q10H IV 01/06/20 20:00 01/07/20 14:59 Trazodone HCl (Desyrel) 75 mg QPM PO 01/04/20 21:00 01/05/20 20:23 Allergies Coded Allergies: No Known Allergies (Unverified , 01/04/20) Lacy Velasco MD Jan 07, 2020 15:41
[2020-01-07] MEDS: SENNA 8.6 MG TAB (SENOKOT) PO SCH (20:04)
[2020-01-07 22:00] VITALS: BP 110/75
[2020-01-08] MEDS: NS 1,000 ML IV SCH ×2 (05:03→14:02)
[2020-01-08 06:00] VITALS: BP 143/78
[2020-01-08 06:59] LABS: BASO % 0.5 % (0.0-1.0); EOS # 0.1 10^3/uL (0.0-0.5); EOS % 1.4 % (0.0-3.0); HEMATOCRIT 36.6 % (36.0-47.0); HEMOGLOBIN 12.6 g/dl (12.0-15.5); LYMPH # 2.4 10^3/uL (1.5-5.0); LYMPH % 29.5 % (24.0-44.0); MEAN CORPUSCULAR HEMOGLOBIN 32.1 pg (27.0-33.0); MEAN CORPUSCULAR HGB CONC 34.4 g/dl (32.0-36.5); MEAN CORPUSCULAR VOLUME 93.1 fl (80.0-96.0); MONO # 0.6 10^3/uL (0.0-0.8); MONO % 7.4 % (0.0-5.0); NEUTROPHILS # 4.9 10^3/uL (1.5-8.5); NEUTROPHILS % 60.8 % (36.0-66.0); PLATELET COUNT, AUTOMATED 213 10^3/uL (150-450); RED BLOOD COUNT 3.93 10^6/uL (4.00-5.40); WHITE BLOOD COUNT 8.1 10^3/uL (4.0-10.0)
[2020-01-08 07:40] LABS: BLOOD UREA NITROGEN 11 MG/DL (7-18); CALCIUM LEVEL 8.6 MG/DL (8.8-10.2); CARBON DIOXIDE LEVEL 25 MEQ/L (21-32); CHLORIDE LEVEL 109 MEQ/L (98-107); CREATININE FOR GFR 0.65 MG/DL (0.55-1.30); GLOMERULAR FILTRATION RATE > 60.0 (>39); GLUCOSE, FASTING 89 MG/DL (70-100); MAGNESIUM LEVEL 2.1 MG/DL (1.8-2.4); POTASSIUM SERUM 3.4 MEQ/L (3.5-5.1); SODIUM LEVEL 140 MEQ/L (136-145)
[2020-01-08] MEDS ORDERED: POTASSIUM CHLORIDE 10% LIQ 20 MEQ/15 ML UDC PO ONE (08:00)
[2020-01-08] MEDS: ATORVASTATIN 10 MG TAB PO SCH (09:07)
[2020-01-08] MEDS: DOCUSATE SODIUM 100 MG CAP PO SCH ×2 (09:07→20:20)
[2020-01-08] MEDS: HEPARIN SOD (PORCINE) 5000UNITS/ML 1ML VIAL/SYRINGE SC SCH ×2 (09:08→20:20)
[2020-01-08] MEDS ORDERED: SENN18TA PO (12:16)
--- NOTE | 2020-01-08 12:24 | IPNPDOC ---
Date Seen The patient was seen on 01/08/20. Progress Note SUBJECTIVE: patient was seen and examined at bedside. Advanced dementia. Patient is alert in bed, does not appear to be somnolent. Answers to simple yes/no questions, but is not oriented to place or time. Able to stand, requires assistance. PT at bedside. No acute events overnight. Denies CP, SOB, abdo pain, n/v/d. Continuing to hold zyprexa and trazodone. OBJECTIVE PHYSICAL EXAMINATION: VITAL SIGNS: See below General: alert, sitting upright in chair, comfortable. HEENT: noted healing bruising on bridge of nose, R forehead Neck: supple, no JVD, normal ROM Cardiac: RRR, normal S1, S2 Pulm: CTAB. No wheezes, rhonchi, rales Abd: soft, non distended, BS+, non tender to palpation Ext: no edema noted. Neuro: No focal deficits LABORATORY DATA, IMAGING STUDIES, MICROBIOLOGY: Please see below. CT maxillofacial without contrast performed on 01/04/2020: fracture left nasal bone, contusion over the right frontal bone, chronic ethmoid sinusitis. CT of the head performed without contrast 01/04/2020: no acute intracranial findings, advanced cerebral atrophy with advanced chronic microvascular ischemic changes within the deep white matter. Fracture of the left nasal bone, superficial contusions suggested over the right frontal bone, chronic ethmoid sinusitis CT of the cervical spine performed without contrast on 01/04/2020: No acute findings, degenerative disc disease most severe at C5-C6. Bilateral foraminal stenosis, no central stenosis, asymmetric soft tissue thickening along the left lateral wall of the oropharynx, direct visualization recommended ASSESSMENT AND PLAN: Patient is a 74-year-old female admitted for acute hypernatremia, fall, left nasal fracture. Somnolence due to unintentional zyprexa overdosing. PROBLEMS: # Somnolence 2/2 unintentional zyprexa overdose: hold zyprexa, per half-life will be cleared on 01/11. Discussed with son, to f/u with PCP upon DC, resume at a lower dose. PT ongoing. If mentation improves, ok to DC home with prior level of support. Son arranged for hospital bed. #Decreased appetite: likely 2/2 zyprexa overdose. 1:1 feedings to encourage. Consider appetite stim, possibly mirtazepine depending on alertness as outpatient. #Advanced dementia: hold zyprexa, trazodone. Monitor for behaviours. #L nasal bone fx: no surgical intervention. pain control with tylenol prn. Pain well controlled. #Hx of hypertension: BP meds DC by PCP. Dispo: son has arranged for hospital bed. Pending improvement in mentation, stability from PT standpoint, plan to DC home with care from son. VS, I&O, 24H, Fishbone Vital Signs/I&O Vital Signs Date Time Temp Pulse Resp B/P (MAP) Pulse Ox O2 Delivery O2 Flow Rate FiO2 01/08/20 06:00 97.8 62 18 143/78 (99) 92 Room Air I&O- Last 24 Hours up to 6 AM 01/08/20 05:59 Intake Total 2565 ml Output Total 0 ml Balance 2565 ml Laboratory Data 24H LABS Laboratory Tests 2 01/08/20 06:21: Immature Granulocyte % (Auto) 0.4, Neutrophils (%) (Auto) 60.8, Lymphocytes (%) (Auto) 29.5, Monocytes (%) (Auto) 7.4H, Eosinophils (%) (Auto) 1.4, Basophils (%) (Auto) 0.5, Neutrophils # (Auto) 4.9, Lymphocytes # (Auto) 2.4, Monocytes # (Auto) 0.6, Eosinophils # (Auto) 0.1, Basophils # (Auto) 0.0, Nucleated Red Blood Cells % (auto) 0.0, Anion Gap 6L, Glomerular Filtration Rate > 60.0, Calcium Level 8.6L, Magnesium Level 2.1 CBC/BMP Laboratory Tests 01/08/20 06:21 ASIYA SENIOR MD Jan 08, 2020 12:24
[2020-01-08 13:48] VITALS: BP 147/95
[2020-01-08] MEDS: SENNA 8.6 MG TAB (SENOKOT) PO SCH (20:20)
[2020-01-08 22:00] VITALS: BP 139/88
[2020-01-09] MEDS: NS 1,000 ML IV SCH ×2 (00:41→12:42)
[2020-01-09 06:00] VITALS: BP 130/78
[2020-01-09 06:42] LABS: BASO % 0.4 % (0.0-1.0); EOS # 0.1 10^3/uL (0.0-0.5); EOS % 1.2 % (0.0-3.0); HEMATOCRIT 39.5 % (36.0-47.0); HEMOGLOBIN 13.8 g/dl (12.0-15.5); LYMPH # 2.3 10^3/uL (1.5-5.0); LYMPH % 30.7 % (24.0-44.0); MEAN CORPUSCULAR HEMOGLOBIN 31.9 pg (27.0-33.0); MEAN CORPUSCULAR HGB CONC 34.9 g/dl (32.0-36.5); MEAN CORPUSCULAR VOLUME 91.4 fl (80.0-96.0); MONO # 0.5 10^3/uL (0.0-0.8); NEUTROPHILS # 4.6 10^3/uL (1.5-8.5); NEUTROPHILS % 60.4 % (36.0-66.0); PLATELET COUNT, AUTOMATED 192 10^3/uL (150-450); RED BLOOD COUNT 4.32 10^6/uL (4.00-5.40); WHITE BLOOD COUNT 7.6 10^3/uL (4.0-10.0)
[2020-01-09 06:58] LABS: BLOOD UREA NITROGEN 10 MG/DL (7-18); CALCIUM LEVEL 8.6 MG/DL (8.8-10.2); CARBON DIOXIDE LEVEL 24 MEQ/L (21-32); CHLORIDE LEVEL 108 MEQ/L (98-107); CREATININE FOR GFR 0.66 MG/DL (0.55-1.30); GLOMERULAR FILTRATION RATE > 60.0 (>39); GLUCOSE, FASTING 102 MG/DL (70-100); MAGNESIUM LEVEL 2.1 MG/DL (1.8-2.4); POTASSIUM SERUM 3.6 MEQ/L (3.5-5.1); SODIUM LEVEL 137 MEQ/L (136-145)
[2020-01-09] MEDS: DOCUSATE SODIUM 100 MG CAP PO SCH ×2 (08:20→21:59)
[2020-01-09] MEDS: ATORVASTATIN 10 MG TAB PO SCH (08:20)
[2020-01-09] MEDS: HEPARIN SOD (PORCINE) 5000UNITS/ML 1ML VIAL/SYRINGE SC SCH ×2 (08:20→21:59)
[2020-01-09 14:00] VITALS: BP 147/90
[2020-01-09 15:40] VITALS: BP 143/78
--- NOTE | 2020-01-09 20:09 | REPVR ---
PROCEDURE INFORMATION: Exam: MR Head Without Contrast Exam date and time: 01/09/2020 7:44 PM Age: 74 years old Clinical indication: Dizziness; Additional info: Unsteady gait, vertigo TECHNIQUE: Imaging protocol: MR of the head without contrast. COMPARISON: CT Head without contrast 01/04/2020 8:42 PM FINDINGS: Significantly limited by motion artifact on multiple sequences No abnormal restriction of diffusion to indicate acute CVA. Midline structures and cerebellar tonsillar position appear normal. Ventricles, cisterns and sulci are symmetrically prominent. No intracranial mass, midline shift or abnormal extra-axial fluid. No acute intracranial hemorrhage. Moderate pattern of increased T2 and flair signal in supratentorial white matter. Optic chiasm and pituitary infundibulum appear normal. Normal vascular flow voids in major intracranial arteries and dural venous sinuses. Paranasal sinuses are normally aerated. Mastoid air cells are normally aerated. Optic globes and orbits are unremarkable. IMPRESSION: No acute intracranial abnormality and no convincing change since the CT from July 14, 2018. Symmetric atrophy and symmetric moderately severe chronic microangiopathic supratentorial white matter changes. Electronically signed by: Cristian Yuan On 01/09/2020 20:08:59 PM
--- NOTE | 2020-01-09 20:43 | IPNPDOC ---
Date Seen The patient was seen on 01/09/20. Progress Note SUBJECTIVE: patient was seen and examined at bedside. Advanced dementia.. Able to stand, takes steps with hand hold assist, leans to R, suspect vertigo. PT at bedside. No acute events overnight. Denies CP, SOB, abdo pain, n/v/d. Continuing to hold zyprexa and trazodone. I discussed patient's tendency to lean to R when ambulating with her son. He reports prior such episodes and she was prescribed meclizine by her PCP prn for symptoms of vertigo. Possibility to make patient more somnolent with meclizine but will trial this evening. Will obtain MRI brain to r/o additional intracranial pathology. OBJECTIVE PHYSICAL EXAMINATION: VITAL SIGNS: See below General: alert, sitting upright in chair, comfortable. HEENT: noted healing bruising on bridge of nose, R forehead Neck: supple, no JVD, normal ROM Cardiac: RRR, normal S1, S2 Pulm: CTAB. No wheezes, rhonchi, rales Abd: soft, non distended, BS+, non tender to palpation Ext: no edema noted. Neuro: No focal deficits LABORATORY DATA, IMAGING STUDIES, MICROBIOLOGY: Please see below. CT maxillofacial without contrast performed on 01/04/2020: fracture left nasal bone, contusion over the right frontal bone, chronic ethmoid sinusitis. CT of the head performed without contrast 01/04/2020: no acute intracranial findings, advanced cerebral atrophy with advanced chronic microvascular ischemic changes within the deep white matter. Fracture of the left nasal bone, superficial contusions suggested over the right frontal bone, chronic ethmoid sinusitis CT of the cervical spine performed without contrast on 01/04/2020: No acute find ings, degenerative disc disease most severe at C5-C6. Bilateral foraminal stenosis, no central stenosis, asymmetric soft tissue thickening along the left lateral wall of the oropharynx, direct visualization recommended ASSESSMENT AND PLAN: Patient is a 74-year-old female admitted for acute hyperna tremia, fall, left nasal fracture. Somnolence due to unintentional zyprexa overdosing. PROBLEMS: # Somnolence 2/2 unintentional zyprexa overdose: hold zyprexa, per half-life will be cleared on 01/11. Holding trazodone. Discussed with son, to f/u with PCP upon DC, resume at a lower dose. PT ongoing. Patient's somnolence improved. #Gait instability: requires hand hold assist. R lean. Meclizine trial. MRI brain showing no acute changes on 01/09/20. #Decreased appetite: likely 2/2 zyprexa overdose. 1:1 feedings to encourage. Consider appetite stim, possibly mirtazepine depending on alertness as outpatient. #Advanced dementia: hold zyprexa, trazodone. Monitor for behaviours. #L nasal bone fx: no surgical intervention. pain control with tylenol prn. Pain well controlled. #Hx of hypertension: BP meds DC by PCP. Dispo: son has arranged for hospital bed. Pending improvement in mentation, stability from PT standpoint, plan to DC home with care from son. Plan for DC 01/10/20. VS, I&O, 24H, Fishbone Vital Signs/I&O Vital Signs Date Time Temp Pulse Resp B/P (MAP) Pulse Ox O2 Delivery O2 Flow Rate FiO2 01/09/20 15:40 143/78 (99) 01/09/20 14:00 98.0 68 18 92 Room Air I&O- Last 24 Hours up to 6 AM 01/09/20 06:00 Intake Total 2520 ml Output Total 250 ml Balance 2270 ml Laboratory Data 24H LABS Laboratory Tests 2 01/09/20 06:17: Immature Granulocyte % (Auto) 0.3, Neutrophils (%) (Auto) 60.4, Lymphocytes (%) (Auto) 30.7, Monocytes (%) (Auto) 7.0H, Eosinophils (%) (Auto) 1.2, Basophils (%) (Auto) 0.4, Neutrophils # (Auto) 4.6, Lymphocytes # (Auto) 2.3, Monocytes # (Auto) 0.5, Eosinophils # (Auto) 0.1, Basophils # (Auto) 0.0, Nucleated Red Blood Cells % (auto) 0.0, Anion Gap 5L, Glomerular Filtration Rate > 60.0, Calcium Level 8.6L, Magnesium Level 2.1 CBC/BMP Laboratory Tests 01/09/20 06:17 ASIYA SENIOR MD Jan 09, 2020 20:42
[2020-01-09] MEDS: SENNA 8.6 MG TAB (SENOKOT) PO SCH (21:59)
[2020-01-09] MEDS: MECLIZINE 12.5 MG TAB PO SCH (21:59)
[2020-01-09 22:00] VITALS: BP 142/68
[2020-01-10 06:00] VITALS: BP 115/72
[2020-01-10 06:31] LABS: BASO % 0.5 % (0.0-1.0); EOS # 0.1 10^3/uL (0.0-0.5); HEMATOCRIT 37.7 % (36.0-47.0); HEMOGLOBIN 12.8 g/dl (12.0-15.5); LYMPH # 2.3 10^3/uL (1.5-5.0); LYMPH % 39.7 % (24.0-44.0); MEAN CORPUSCULAR HEMOGLOBIN 31.9 pg (27.0-33.0); MONO # 0.4 10^3/uL (0.0-0.8); MONO % 6.9 % (0.0-5.0); NEUTROPHILS % 50.6 % (36.0-66.0); PLATELET COUNT, AUTOMATED 231 10^3/uL (150-450); RED BLOOD COUNT 4.01 10^6/uL (4.00-5.40); WHITE BLOOD COUNT 5.9 10^3/uL (4.0-10.0)
[2020-01-10 07:01] LABS: BLOOD UREA NITROGEN 19 MG/DL (7-18); CALCIUM LEVEL 9.2 MG/DL (8.8-10.2); CARBON DIOXIDE LEVEL 25 MEQ/L (21-32); CHLORIDE LEVEL 104 MEQ/L (98-107); CREATININE FOR GFR 0.94 MG/DL (0.55-1.30); GLOMERULAR FILTRATION RATE > 60.0 (>39); GLUCOSE, FASTING 96 MG/DL (70-100); MAGNESIUM LEVEL 2.3 MG/DL (1.8-2.4); POTASSIUM SERUM 3.7 MEQ/L (3.5-5.1); SODIUM LEVEL 139 MEQ/L (136-145)
[2020-01-10] MEDS: HEPARIN SOD (PORCINE) 5000UNITS/ML 1ML VIAL/SYRINGE SC SCH (10:21)
[2020-01-10] MEDS: ATORVASTATIN 10 MG TAB PO SCH (10:21)
[2020-01-10] MEDS: DOCUSATE SODIUM 100 MG CAP PO SCH (10:22)
[2020-01-10] MEDS: MECLIZINE 12.5 MG TAB PO SCH (10:22)
[2020-01-10 14:00] VITALS: BP 132/66
--- NOTE | 2020-01-10 15:42 | IPNPDOC ---
Date Seen The patient was seen on 01/10/20. Progress Note SUBJECTIVE: patient was seen and examined at bedside. Advanced dementia. No acute events overnight. Denies CP, SOB, abdo pain, n/v/d. Continuing to hold zyprexa and trazodone. PT re-examined patient on 01/09, remains safe for DC with prev level of care. Planned for DC today. OBJECTIVE PHYSICAL EXAMINATION: VITAL SIGNS: See below General: alert, sitting upright in chair, comfortable. HEENT: noted healing bruising on bridge of nose, R forehead Neck: supple, no JVD, normal ROM Cardiac: RRR, normal S1, S2 Pulm: CTAB. No wheezes, rhonchi, rales Abd: soft, non distended, BS+, non tender to palpation Ext: no edema noted. Neuro: No focal deficits LABORATORY DATA, IMAGING STUDIES, MICROBIOLOGY: Please see below. MRI brain wo contrast (01/09/20): No acute intracranial abnormality and no convincing change since the CT from July 14, 2018. Symmetric atrophy and symmetric moderately severe chronic microangiopathic supratentorial white matter changes. CT maxillofacial without contrast performed on 01/04/2020: fracture left nasal bone, contusion over the right frontal bone, chronic ethmoid sinusitis. CT of the head performed without contrast 01/04/2020: no acute intracranial findings, advanced cerebral atrophy with advanced chronic microvascular ischemic changes within the deep white matter. Fracture of the left nasal bone, superficial contusions suggested over the right frontal bone, chronic ethmoid sinusitis CT of the cervical spine performed without contrast on 01/04/2020: No acute findings, degenerative disc disease most severe at C5-C6. Bilateral foraminal stenosis, no central stenosis, asymmetric soft tissue thickening along the left lateral wall of the oropharynx, direct visualization recommended ASSESSMENT AND PLAN: Patient is a 74-year-old female admitted for acute hypernatremia, fall, left nasal fracture. Somnolence due to unintentional zyprexa overdosing. PROBLEMS: # Somnolence 2/2 unintentional zyprexa overdose: hold zyprexa, per half-life will be cleared on 01/11. Holding trazodone. Discussed with son, to f/u with PCP upon DC, resume at a lower dose. PT cleared for DC with prior level care. Patient's somnolence improved. #Gait instability: requires hand hold assist. MRI brain showing no acute changes on 01/09/20. #Decreased appetite: likely 2/2 zyprexa overdose. 1:1 feedings to encourage. Consider appetite stim, possibly mirtazepine depending on alertness as outpatient. #Advanced dementia: hold zyprexa, trazodone. Monitor for behaviours. #L nasal bone fx: no surgical intervention. pain control with tylenol prn. Pain well controlled. #Hx of hypertension: BP meds DC by PCP. Dispo: son has arranged for hospital bed. Pending improvement in mentation, stability from PT standpoint, plan to DC home with care from son. VS, I&O, 24H, Fishbone Vital Signs/I&O Vital Signs Date Time Temp Pulse Resp B/P (MAP) Pulse Ox O2 Delivery O2 Flow Rate FiO2 01/10/20 14:00 98.4 80 15 132/66 (88) 96 Room Air I&O- Last 24 Hours up to 6 AM 01/10/20 06:00 Intake Total 1020 ml Balance 1020 ml Laboratory Data 24H LABS Laboratory Tests 2 01/10/20 05:56: Immature Granulocyte % (Auto) 0.3, Neutrophils (%) (Auto) 50.6, Lymphocytes (%) (Auto) 39.7, Monocytes (%) (Auto) 6.9H, Eosinophils (%) (Auto) 2.0, Basophils (%) (Auto) 0.5, Neutrophils # (Auto) 3.0, Lymphocytes # (Auto) 2.3, Monocytes # (Auto) 0.4, Eosinophils # (Auto) 0.1, Basophils # (Auto) 0.0, Nucleated Red Blood Cells % (auto) 0.0, Anion Gap 10, Glomerular Filtration Rate > 60.0, Calcium Level 9.2, Magnesium Level 2.3 CBC/BMP Laboratory Tests 01/10/20 05:56 ASIYA SENIOR MD Jan 10, 2020 15:42
== END 2020-01-10 15:31 | disposition home health service (06) | DRG 641 ==
LOC: M ED 19:46 → M ED INP 23:12 → ENRESERV 23:31 → M MSPAV 01-05 00:42
PROVIDERS: ADMIT Family Medicine; ATTEND Internal Medicine
DX: E87.0 Hyperosmolality and hypernatremia (principal); F03.91 Unspecified dementia, unspecified severity, with behavioral disturbance; S02.2XXA Fracture of nasal bones, initial encounter for closed fracture; I10 Essential (primary) hypertension; Z79.899 Other long term (current) drug therapy; W18.30XA Fall on same level, unspecified, initial encounter; Y92.009 Unspecified place in unspecified non-institutional (private) residence as the place of occurrence of the external cause; T43.591A Poisoning by other antipsychotics and neuroleptics, accidental (unintentional), initial encounter

== ENCOUNTER 2022-04-23 14:51 | Inpatient (IN) | payer MEDICARE, MEDICAID ==
[~2022-04-23] VITALS: Ht 160 cm; Wt 50.8 kg
[~2022-04-23 14:51] MED LIST changes: +ACET1TAB55 PO; +DOCU100C16 PO; +POLY17PO18 PO; +SENN18TA PO; +ZYPR10TA PO
[2022-04-23] MEDS ORDERED: NS 1,000 ML IV SCH (15:00)
[2022-04-23] MEDS: NS 1,000 ML IV SCH ×3 (15:55→21:39)
[2022-04-23 15:58] LABS: VENOUS BASE EXCESS -1.6 (-2.0-2.0); VENOUS O2 SATURATION 56.4 % (60.0-80.0); VENOUS PARTIAL PRESSURE CO2 44.1 mmHg (38.0-50.0); VENOUS PARTIAL PRESSURE O2 30.5 mmHg (30.0-50.0); VENOUS PH 7.354 UNITS (7.330-7.430); VENOUS STANDARD HCO3 22.2 MEQ/L; VENOUS TOTAL CO2 25.4 MEQ/L (24.0-28.0)
[2022-04-23 16:00] LABS: BASO % 0.4 % (0.0-1.0); HEMATOCRIT 36.8 % (36.0-47.0); HEMOGLOBIN 12.2 g/dl (12.0-15.5); LYMPH # 0.6 10^3/uL (1.5-5.0); LYMPH % 12.3 % (24.0-44.0); MEAN CORPUSCULAR HEMOGLOBIN 32.1 pg (27.0-33.0); MEAN CORPUSCULAR HGB CONC 33.2 g/dl (32.0-36.5); MEAN CORPUSCULAR VOLUME 96.8 fl (80.0-96.0); MONO # 0.4 10^3/uL (0.0-0.8); MONO % 9.4 % (2.0-8.0); NEUTROPHILS # 3.7 10^3/uL (1.5-8.5); NEUTROPHILS % 77.7 % (36.0-66.0); PLATELET COUNT, AUTOMATED 183 10^3/uL (150-450); WHITE BLOOD COUNT 4.7 10^3/uL (4.0-10.0)
[2022-04-23 16:32] LABS: ALBUMIN 3.3 G/DL (3.2-5.2); ALKALINE PHOSPHATASE 77 U/L (46-116); ALT/SGPT 10 U/L (7.0-40); AST/SGOT 22 U/L (<34); BILIRUBIN,DIRECT 0.2 MG/DL (<0.4); BILIRUBIN,TOTAL 0.6 MG/DL (0.3-1.2); BLOOD UREA NITROGEN 18 MG/DL (9-23); CARBON DIOXIDE LEVEL 28 MMOL/L (20-31); CHLORIDE LEVEL 100 MMOL/L (98-107); CREATININE FOR GFR 0.73 MG/DL (0.55-1.30); GLOMERULAR FILTRATION RATE > 60.0 (>39); GLUCOSE, FASTING 131 MG/DL (74-106); POTASSIUM SERUM 3.8 MMOL/L (3.5-5.1); SODIUM LEVEL 136 MMOL/L (136-145); THYROID STIMULATING HORMONE 2.069 uIU/ML (0.55-4.78)
[2022-04-23 16:54] LABS: OSMOLALITY SERUM 288 MOSM/KG (280-301)
[2022-04-23] MEDS ORDERED: NS 500 ML IV ONE ×2 (18:20→23:05)
[2022-04-23] MEDS ORDERED: ACETAMINOPHEN TAB 650MG DOSE (2X325MG) PO ONE (18:25)
[2022-04-23] MEDS ORDERED: TRAZ-252 PO (20:58)
[2022-04-23] MEDS ORDERED: MED REC COMMENT (20:58)
[2022-04-23] MEDS ORDERED: OLAN2.5T25 PO (20:58)
[2022-04-23] MEDS ORDERED: NIRMATRELVIR/RITONAVIR CO-PACK (EMERGENCY USE AUTH) PO SCH (21:00)
[2022-04-23] MEDS ORDERED: OLANZapine 2.5MG TABLET PO SCH (21:00)
[2022-04-23] MEDS ORDERED: HOME MED LIST COMPLETE! XX SCH (21:05)
[2022-04-23] MEDS: NIRMATRELVIR/RITONAVIR CO-PACK (EMERGENCY USE AUTH) PO SCH (22:00)
[2022-04-23] MEDS ORDERED: PILL CUTTER 1 EACH XX ONE (22:09)
[2022-04-24] VITALS (10 sets, daily range): BP systolic 125–200; BP diastolic 60–86
[2022-04-24] MEDS ORDERED: RAMELTEON 8 MG TAB (ROZEREM) PO PRN (02:00)
[2022-04-24] MEDS ORDERED: **hydrALAZINE** 10 MG TAB PO ONE ×2 (03:00→04:00)
[2022-04-24] MEDS ORDERED: NS 1,000 ML IV SCH (03:30)
[2022-04-24 06:13] LABS: HEMATOCRIT 33.9 % (36.0-47.0); HEMOGLOBIN 11.4 g/dl (12.0-15.5); MEAN CORPUSCULAR HEMOGLOBIN 32.3 pg (27.0-33.0); MEAN CORPUSCULAR HGB CONC 33.6 g/dl (32.0-36.5); PLATELET COUNT, AUTOMATED 157 10^3/uL (150-450); RED BLOOD COUNT 3.53 10^6/uL (4.00-5.40); WHITE BLOOD COUNT 6.3 10^3/uL (4.0-10.0)
[2022-04-24 06:49] LABS: ALBUMIN 2.9 G/DL (3.2-5.2); ALKALINE PHOSPHATASE 65 U/L (46-116); ALT/SGPT 10 U/L (7.0-40); AST/SGOT 30 U/L (<34); BILIRUBIN,TOTAL 0.6 MG/DL (0.3-1.2); BLOOD UREA NITROGEN 9 MG/DL (9-23); CALCIUM LEVEL 8.2 MG/DL (8.3-10.6); CARBON DIOXIDE LEVEL 24 MMOL/L (20-31); CHLORIDE LEVEL 102 MMOL/L (98-107); CREATININE FOR GFR 0.53 MG/DL (0.55-1.30); GLOMERULAR FILTRATION RATE > 60.0 (>39); GLUCOSE, FASTING 104 MG/DL (74-106); POTASSIUM SERUM 3.4 MMOL/L (3.5-5.1); SODIUM LEVEL 134 MMOL/L (136-145); TOTAL PROTEIN 6.2 G/DL (5.7-8.2)
[2022-04-24] MEDS ORDERED: POTASSIUM CHLORIDE 10MEQ SR TABLET PO ONE (07:15)
[2022-04-24] MEDS: NIRMATRELVIR/RITONAVIR CO-PACK (EMERGENCY USE AUTH) PO SCH (08:53)
[2022-04-24] MEDS ORDERED: LORATADINE 10 MG TAB PO PRN (09:00)
[2022-04-24] MEDS ORDERED: HEPARIN SOD (PORCINE) 5000UNITS/ML 1ML VIAL/SYRINGE SQ SCH (09:00)
[2022-04-24 11:17] LABS: MAGNESIUM LEVEL 1.7 MG/DL (1.8-2.4)
[2022-04-24] MEDS ORDERED: GLUCOSE 4GM CHEW TABLET PO PRN (12:45)
[2022-04-24] MEDS ORDERED: D5W 1,000 ML IV SCH (12:45)
[2022-04-24] MEDS ORDERED: GLUCAGON INJ 1MG VIAL SC PRN (12:45)
[2022-04-24] MEDS ORDERED: DEXTROSE 50% 50ML SYRINGE IV PRN (12:45)
[2022-04-24] MEDS ORDERED: D5W/0.9% SODIUM CHLORIDE 1,000 ML IV SCH (13:20)
[2022-04-24] MEDS: D5W/0.45% SODIUM CHLORIDE 1,000 ML IV SCH (13:36)
[2022-04-24] MEDS: ACETAMINOPHEN 650MG SUPP PR PRN (14:30)
[2022-04-24] MEDS ORDERED: MAG SULF 1GM/100ML (MAG RUN) 1 GM in IV 1 EA IV ONE (14:55)
[2022-04-24] MEDS ORDERED: hydrALAZINE 20MG/ML 1ML VIAL IV PRN (15:00)
[2022-04-24] MEDS: HEPARIN SOD (PORCINE) 5000UNITS/ML 1ML VIAL/SYRINGE SQ SCH ×3 (15:20→21:08)
[2022-04-24] MEDS ORDERED: ACETAMINOPHEN 1000MG 100ML IV BAG IV ONE (16:50)
[2022-04-24] MEDS ORDERED: ACETAMINOPHEN *IV* 500 MG in IV 1 EA IV ONE (18:00)
[2022-04-24] MEDS ORDERED: REMDESIVIR 200 MG in NS 250 ML IV ONE (18:00)
[2022-04-24] MEDS ORDERED: SODIUM CHLORIDE 0.9% INJ 10 ML SYR IV ONE (19:00)
[2022-04-24] MEDS ORDERED: cefTRIAXone SOD 2 GM in D5W MINI-BAG PLUS 50 ML IV SCH (20:00)
[2022-04-24] MEDS ORDERED: KETOROLAC 30 MG/ML 1ML VIAL IV ONE (20:00)
[2022-04-24] MEDS ORDERED: VANCOMYCIN HCL 1,000 MG, VIAL MATE ADAPTER 1 EACH in NS 250 ML IV ONE (21:00)
[2022-04-24] MEDS ORDERED: traZODone 25MG PER 1/2 TABLET PO SCH (21:00)
[2022-04-25] MEDS: D5W/0.45% SODIUM CHLORIDE 1,000 ML IV SCH ×3 (02:03→23:04)
[2022-04-25 02:17] VITALS: BP 137/58
[2022-04-25] MEDS: HEPARIN SOD (PORCINE) 5000UNITS/ML 1ML VIAL/SYRINGE SQ SCH ×3 (05:29→22:19)
[2022-04-25] MEDS: ACETAMINOPHEN 650MG SUPP PR PRN (05:43)
[2022-04-25 05:57] VITALS: BP 165/78
[2022-04-25 06:23] LABS: BASO % 0.3 % (0.0-1.0); HEMATOCRIT 39.2 % (36.0-47.0); HEMOGLOBIN 13.4 g/dl (12.0-15.5); LYMPH % 13.4 % (24.0-44.0); MEAN CORPUSCULAR HGB CONC 34.2 g/dl (32.0-36.5); MEAN CORPUSCULAR VOLUME 93.6 fl (80.0-96.0); MONO # 0.5 10^3/uL (0.0-0.8); MONO % 6.8 % (2.0-8.0); NEUTROPHILS # 5.9 10^3/uL (1.5-8.5); NEUTROPHILS % 79.2 % (36.0-66.0); PLATELET COUNT, AUTOMATED 192 10^3/uL (150-450); RED BLOOD COUNT 4.19 10^6/uL (4.00-5.40); WHITE BLOOD COUNT 7.4 10^3/uL (4.0-10.0)
[2022-04-25 06:46] LABS: ALKALINE PHOSPHATASE 63 U/L (46-116); ALT/SGPT 11 U/L (7.0-40); AST/SGOT 57 U/L (<34); BILIRUBIN,TOTAL 0.5 MG/DL (0.3-1.2); BLOOD UREA NITROGEN 7 MG/DL (9-23); CALCIUM LEVEL 8.4 MG/DL (8.3-10.6); CARBON DIOXIDE LEVEL 28 MMOL/L (20-31); CHLORIDE LEVEL 101 MMOL/L (98-107); GLOMERULAR FILTRATION RATE > 60.0 (>39); GLUCOSE, FASTING 128 MG/DL (74-106); POTASSIUM SERUM 3.3 MMOL/L (3.5-5.1); SODIUM LEVEL 137 MMOL/L (136-145); TOTAL PROTEIN 6.6 G/DL (5.7-8.2)
[2022-04-25 07:37] LABS: ERYTHROCYTE SEDIMENTATION RATE 33 mm/hr (0-30)
[2022-04-25] MEDS ORDERED: ISOVUE-370 76% 100ML VIAL As Ordered ONE (11:17)
[2022-04-25] MEDS: KCL 10MEQ/100ML SWI (KRUN) 10 MEQ in IV 1 EA IV SCH ×4 (12:51→16:41)
[2022-04-25 14:00] VITALS: BP 155/74
[2022-04-25] MEDS: cefTRIAXone SOD 2 GM in D5W MINI-BAG PLUS 50 ML IV SCH ×2 (14:10→23:02)
[2022-04-25] MEDS: AMPICILLIN SOD 2 GM in D5W MINI-BAG PLUS 100 ML IV SCH ×3 (14:43→22:19)
[2022-04-25 14:45] VITALS: BP 118/60
[2022-04-25] MEDS: REMDESIVIR 100 MG in NS 250 ML IV SCH (17:47)
[2022-04-25] MEDS: SODIUM CHLORIDE 0.9% INJ 10 ML SYR IV SCH (18:51)
[2022-04-25] MEDS ORDERED: VANCOMYCIN HCL 750 MG, VIAL MATE ADAPTER 1 EACH in D5W 250 ML IV SCH ×2 (20:00→21:00)
[2022-04-25 21:00] VITALS: BP 150/73
[2022-04-26] MEDS: AMPICILLIN SOD 2 GM in D5W MINI-BAG PLUS 100 ML IV SCH ×6 (01:41→21:55)
[2022-04-26] MEDS: HEPARIN SOD (PORCINE) 5000UNITS/ML 1ML VIAL/SYRINGE SQ SCH ×3 (05:22→21:54)
[2022-04-26 05:27] VITALS: BP 160/88
[2022-04-26 07:15] LABS: ALBUMIN 2.8 G/DL (3.2-5.2); ALKALINE PHOSPHATASE 55 U/L (46-116); ALT/SGPT 16 U/L (7.0-40); AST/SGOT 99 U/L (<34); BILIRUBIN,TOTAL 0.3 MG/DL (0.3-1.2); BLOOD UREA NITROGEN 9 MG/DL (9-23); CALCIUM LEVEL 8.2 MG/DL (8.3-10.6); CARBON DIOXIDE LEVEL 26 MMOL/L (20-31); CHLORIDE LEVEL 99 MMOL/L (98-107); CREATININE FOR GFR 0.57 MG/DL (0.55-1.30); GLOMERULAR FILTRATION RATE > 60.0 (>39); GLUCOSE, FASTING 177 MG/DL (74-106); MAGNESIUM LEVEL 1.9 MG/DL (1.8-2.4); POTASSIUM SERUM 4.3 MMOL/L (3.5-5.1); SODIUM LEVEL 135 MMOL/L (136-145); TOTAL PROTEIN 6.5 G/DL (5.7-8.2)
[2022-04-26 07:40] LABS: BASO % 0.1 % (0.0-1.0); HEMATOCRIT 33.9 % (36.0-47.0); HEMOGLOBIN 11.9 g/dl (12.0-15.5); LYMPH # 1.2 10^3/uL (1.5-5.0); MEAN CORPUSCULAR HEMOGLOBIN 32.3 pg (27.0-33.0); MEAN CORPUSCULAR HGB CONC 35.1 g/dl (32.0-36.5); MEAN CORPUSCULAR VOLUME 92.1 fl (80.0-96.0); MONO # 0.5 10^3/uL (0.0-0.8); MONO % 4.3 % (2.0-8.0); NEUTROPHILS # 8.8 10^3/uL (1.5-8.5); NEUTROPHILS % 84.1 % (36.0-66.0); PLATELET COUNT, AUTOMATED 182 10^3/uL (150-450); RED BLOOD COUNT 3.68 10^6/uL (4.00-5.40); WHITE BLOOD COUNT 10.5 10^3/uL (4.0-10.0)
[2022-04-26 11:49] LABS: ERYTHROCYTE SEDIMENTATION RATE 26 mm/hr (0-30)
[2022-04-26] MEDS: D5W/0.45% SODIUM CHLORIDE 1,000 ML IV SCH (13:56)
[2022-04-26 14:00] VITALS: BP 170/93
[2022-04-26] MEDS ORDERED: hydrALAZINE 20MG/ML 1ML VIAL IV ONE (14:15)
[2022-04-26 14:25] VITALS: BP 172/82
[2022-04-26] MEDS: cefTRIAXone SOD 2 GM in D5W MINI-BAG PLUS 50 ML IV SCH (14:30)
[2022-04-26] MEDS: amLODIPine 5 MG TAB PO SCH (15:12)
[2022-04-26 16:23] VITALS: BP 154/67
[2022-04-26] MEDS: REMDESIVIR 100 MG in NS 250 ML IV SCH (18:06)
[2022-04-26] MEDS: SODIUM CHLORIDE 0.9% INJ 10 ML SYR IV SCH (18:06)
[2022-04-26 19:31] VITALS: BP 159/76
[2022-04-27] MEDS: cefTRIAXone SOD 2 GM in D5W MINI-BAG PLUS 50 ML IV SCH ×3 (00:06→23:59)
[2022-04-27] MEDS: AMPICILLIN SOD 2 GM in D5W MINI-BAG PLUS 100 ML IV SCH ×6 (01:47→21:21)
[2022-04-27 05:41] VITALS: BP 146/60
[2022-04-27] MEDS: HEPARIN SOD (PORCINE) 5000UNITS/ML 1ML VIAL/SYRINGE SQ SCH ×3 (05:45→21:21)
[2022-04-27] MEDS: D5W/0.45% SODIUM CHLORIDE 1,000 ML IV SCH ×2 (05:45→21:21)
[2022-04-27 06:30] LABS: HEMATOCRIT 31.8 % (36.0-47.0); HEMOGLOBIN 11.4 g/dl (12.0-15.5); MEAN CORPUSCULAR HEMOGLOBIN 32.9 pg (27.0-33.0); MEAN CORPUSCULAR HGB CONC 35.8 g/dl (32.0-36.5); MEAN CORPUSCULAR VOLUME 91.9 fl (80.0-96.0); PLATELET COUNT, AUTOMATED 206 10^3/uL (150-450); RED BLOOD COUNT 3.46 10^6/uL (4.00-5.40); WHITE BLOOD COUNT 9.4 10^3/uL (4.0-10.0)
[2022-04-27 07:28] LABS: BLOOD UREA NITROGEN 14 MG/DL (9-23); CALCIUM LEVEL 7.5 MG/DL (8.3-10.6); CARBON DIOXIDE LEVEL 29 MMOL/L (20-31); CHLORIDE LEVEL 99 MMOL/L (98-107); CREATININE FOR GFR 0.55 MG/DL (0.55-1.30); GLOMERULAR FILTRATION RATE > 60.0 (>39); GLUCOSE, FASTING 138 MG/DL (74-106); MAGNESIUM LEVEL 1.8 MG/DL (1.8-2.4); PHOSPHORUS LEVEL 1.7 MG/DL (2.4-5.1); POTASSIUM SERUM 2.9 MMOL/L (3.5-5.1); SODIUM LEVEL 135 MMOL/L (136-145)
[2022-04-27] MEDS ORDERED: POTASSIUM CHLORIDE 10% LIQ 20MEQ/15ML UDC PO ONE (07:40)
[2022-04-27] MEDS: amLODIPine 5 MG TAB PO SCH (09:19)
[2022-04-27] MEDS ORDERED: POTASSIUM CHLORIDE 10MEQ SR TABLET PO ONE (11:45)
[2022-04-27 14:00] VITALS: BP 136/65
[2022-04-27] MEDS: REMDESIVIR 100 MG in NS 250 ML IV SCH (18:47)
[2022-04-27] MEDS: SODIUM CHLORIDE 0.9% INJ 10 ML SYR IV SCH (19:00)
[2022-04-27 20:38] VITALS: BP 130/68
[2022-04-28] MEDS: AMPICILLIN SOD 2 GM in D5W MINI-BAG PLUS 100 ML IV SCH ×6 (01:42→21:06)
[2022-04-28] MEDS: HEPARIN SOD (PORCINE) 5000UNITS/ML 1ML VIAL/SYRINGE SQ SCH ×3 (05:42→21:07)
[2022-04-28 05:59] LABS: BASO % 0.1 % (0.0-1.0); HEMATOCRIT 32.1 % (36.0-47.0); HEMOGLOBIN 11.3 g/dl (12.0-15.5); LYMPH # 1.5 10^3/uL (1.5-5.0); LYMPH % 16.6 % (24.0-44.0); MEAN CORPUSCULAR HEMOGLOBIN 32.3 pg (27.0-33.0); MEAN CORPUSCULAR HGB CONC 35.2 g/dl (32.0-36.5); MEAN CORPUSCULAR VOLUME 91.7 fl (80.0-96.0); MONO # 0.7 10^3/uL (0.0-0.8); MONO % 7.6 % (2.0-8.0); NEUTROPHILS # 6.7 10^3/uL (1.5-8.5); NEUTROPHILS % 74.9 % (36.0-66.0); PLATELET COUNT, AUTOMATED 217 10^3/uL (150-450)
[2022-04-28 06:00] VITALS: BP 142/78
[2022-04-28 06:24] LABS: BLOOD UREA NITROGEN 13 MG/DL (9-23); CALCIUM LEVEL 7.8 MG/DL (8.3-10.6); CARBON DIOXIDE LEVEL 28 MMOL/L (20-31); CHLORIDE LEVEL 100 MMOL/L (98-107); GLOMERULAR FILTRATION RATE > 60.0 (>39); GLUCOSE, FASTING 144 MG/DL (74-106); MAGNESIUM LEVEL 1.7 MG/DL (1.8-2.4); POTASSIUM SERUM 3.3 MMOL/L (3.5-5.1); SODIUM LEVEL 136 MMOL/L (136-145)
[2022-04-28] MEDS ORDERED: POTASSIUM CHLORIDE 10MEQ SR TABLET PO ONE (06:45)
[2022-04-28] MEDS ORDERED: MAG SULF 1GM/100ML (MAG RUN) 1 GM in IV 1 EA IV ONE (06:45)
[2022-04-28] MEDS: amLODIPine 5 MG TAB PO SCH (09:57)
[2022-04-28] MEDS: cefTRIAXone SOD 2 GM in D5W MINI-BAG PLUS 50 ML IV SCH ×2 (12:02→23:12)
[2022-04-28 12:09] LABS: ALBUMIN 2.4 G/DL (3.2-5.2); ALKALINE PHOSPHATASE 57 U/L (46-116); ALT/SGPT 25 U/L (7.0-40); AST/SGOT 78 U/L (<34); BILIRUBIN,DIRECT 0.1 MG/DL (<0.4); BILIRUBIN,TOTAL 0.2 MG/DL (0.3-1.2); TOTAL PROTEIN 5.5 G/DL (5.7-8.2)
[2022-04-28] MEDS: D5W/0.45% SODIUM CHLORIDE 1,000 ML IV SCH ×2 (13:34→23:13)
[2022-04-28 14:00] VITALS: BP 130/55
[2022-04-28] MEDS: REMDESIVIR 100 MG in NS 250 ML IV SCH (18:31)
[2022-04-28 20:00] VITALS: BP 136/72
[2022-04-28] MEDS: SODIUM CHLORIDE 0.9% INJ 10 ML SYR IV SCH (21:07)
[2022-04-28] MEDS ORDERED: PROHANCE 279.3MG/ML 5ML VIAL As Ordered ONE (21:36)
[2022-04-29] MEDS: D5W/0.45% SODIUM CHLORIDE 1,000 ML IV SCH ×2 (05:55→20:52)
[2022-04-29 05:58] VITALS: BP 160/80
[2022-04-29 08:28] LABS: BASO % 0.1 % (0.0-1.0); EOS % 0.1 % (0.0-3.0); HEMATOCRIT 35.7 % (36.0-47.0); HEMOGLOBIN 12.3 g/dl (12.0-15.5); LYMPH # 1.9 10^3/uL (1.5-5.0); LYMPH % 20.6 % (24.0-44.0); MEAN CORPUSCULAR HGB CONC 34.5 g/dl (32.0-36.5); MONO # 0.8 10^3/uL (0.0-0.8); NEUTROPHILS # 6.4 10^3/uL (1.5-8.5); NEUTROPHILS % 68.6 % (36.0-66.0); PLATELET COUNT, AUTOMATED 233 10^3/uL (150-450); RED BLOOD COUNT 3.84 10^6/uL (4.00-5.40); WHITE BLOOD COUNT 9.3 10^3/uL (4.0-10.0)
[2022-04-29 09:27] VITALS: BP 166/67
[2022-04-29 09:44] LABS: ALBUMIN 2.4 G/DL (3.2-5.2); ALKALINE PHOSPHATASE 58 U/L (46-116); ALT/SGPT 25 U/L (7.0-40); AST/SGOT 57 U/L (<34); BILIRUBIN,TOTAL 0.3 MG/DL (0.3-1.2); BLOOD UREA NITROGEN 8 MG/DL (9-23); CALCIUM LEVEL 7.6 MG/DL (8.3-10.6); CARBON DIOXIDE LEVEL 27 MMOL/L (20-31); CHLORIDE LEVEL 100 MMOL/L (98-107); CREATININE FOR GFR 0.44 MG/DL (0.55-1.30); GLOMERULAR FILTRATION RATE > 60.0 (>39); GLUCOSE, FASTING 124 MG/DL (74-106); MAGNESIUM LEVEL 1.9 MG/DL (1.8-2.4); POTASSIUM SERUM 3.1 MMOL/L (3.5-5.1); SODIUM LEVEL 135 MMOL/L (136-145)
[2022-04-29] MEDS: amLODIPine 5 MG TAB PO SCH (09:58)
[2022-04-29 10:22] LABS: TOTAL PROTEIN 5.7 G/DL (5.7-8.2)
[2022-04-29] MEDS: cefTRIAXone SOD 2 GM in D5W MINI-BAG PLUS 50 ML IV SCH (13:04)
[2022-04-29] MEDS: POTASSIUM CHLORIDE 10% LIQ 20MEQ/15ML UDC PO SCH ×2 (13:07→20:52)
[2022-04-29 14:00] VITALS: BP 156/67
[2022-04-29 20:49] VITALS: BP 109/63
[2022-04-29] MEDS: HEPARIN SOD (PORCINE) 5000UNITS/ML 1ML VIAL/SYRINGE SQ SCH (22:40)
[2022-04-30 05:41] VITALS: BP 131/66
[2022-04-30 06:07] LABS: HEMOGLOBIN 10.8 g/dl (12.0-15.5); MEAN CORPUSCULAR HGB CONC 33.8 g/dl (32.0-36.5); MEAN CORPUSCULAR VOLUME 94.7 fl (80.0-96.0); PLATELET COUNT, AUTOMATED 245 10^3/uL (150-450); RED BLOOD COUNT 3.38 10^6/uL (4.00-5.40)
[2022-04-30] MEDS: HEPARIN SOD (PORCINE) 5000UNITS/ML 1ML VIAL/SYRINGE SQ SCH ×3 (06:18→21:10)
[2022-04-30 08:00] LABS: BLOOD UREA NITROGEN 12 MG/DL (9-23); CALCIUM LEVEL 7.3 MG/DL (8.3-10.6); CARBON DIOXIDE LEVEL 28 MMOL/L (20-31); CHLORIDE LEVEL 104 MMOL/L (98-107); CREATININE FOR GFR 0.49 MG/DL (0.55-1.30); GLOMERULAR FILTRATION RATE > 60.0 (>39); GLUCOSE, FASTING 105 MG/DL (74-106); SODIUM LEVEL 136 MMOL/L (136-145)
[2022-04-30 08:08] LABS: BASO # 0.1 10^3/uL (0.0-0.2); BASO % 0.6 % (0.0-1.0); EOS # 0.1 10^3/uL (0.0-0.5); EOS % 0.5 % (0.0-3.0); LYMPH % 20.1 % (24.0-44.0); MONO # 0.9 10^3/uL (0.0-0.8); NEUTROPHILS # 6.5 10^3/uL (1.5-8.5)
[2022-04-30 08:35] LABS: POTASSIUM SERUM 4.4 MMOL/L (3.5-5.1)
[2022-04-30 09:43] LABS: MAGNESIUM LEVEL 1.9 MG/DL (1.8-2.4)
[2022-04-30] MEDS: amLODIPine 5 MG TAB PO SCH (10:28)
[2022-04-30] MEDS: POTASSIUM CHLORIDE 10% LIQ 20MEQ/15ML UDC PO SCH ×2 (10:28→21:10)
[2022-04-30 14:00] VITALS: BP 132/66
[2022-04-30 20:00] VITALS: BP 133/83
[2022-04-30] MEDS: D5W/0.45% SODIUM CHLORIDE 1,000 ML IV SCH (20:44)
[2022-05-01] MEDS: HEPARIN SOD (PORCINE) 5000UNITS/ML 1ML VIAL/SYRINGE SQ SCH ×3 (05:52→21:30)
[2022-05-01] MEDS: D5W/0.45% SODIUM CHLORIDE 1,000 ML IV SCH ×2 (05:52→18:49)
[2022-05-01 06:00] VITALS: BP 139/75
[2022-05-01] MEDS: amLODIPine 5 MG TAB PO SCH (08:38)
[2022-05-02] MEDS: HEPARIN SOD (PORCINE) 5000UNITS/ML 1ML VIAL/SYRINGE SQ SCH ×3 (05:20→21:14)
[2022-05-02] MEDS: D5W/0.45% SODIUM CHLORIDE 1,000 ML IV SCH ×2 (05:21→18:40)
[2022-05-02 06:00] VITALS: BP 139/73
[2022-05-02] MEDS: amLODIPine 5 MG TAB PO SCH (09:04)
[2022-05-02 19:47] VITALS: BP 138/69
[2022-05-03] MEDS: HEPARIN SOD (PORCINE) 5000UNITS/ML 1ML VIAL/SYRINGE SQ SCH ×3 (05:27→22:32)
[2022-05-03] MEDS: D5W/0.45% SODIUM CHLORIDE 1,000 ML IV SCH (05:28)
[2022-05-03 06:00] VITALS: BP 123/64
[2022-05-03 06:10] LABS: HEMATOCRIT 30.7 % (36.0-47.0); HEMOGLOBIN 10.4 g/dl (12.0-15.5); MEAN CORPUSCULAR HEMOGLOBIN 32.7 pg (27.0-33.0); MEAN CORPUSCULAR HGB CONC 33.9 g/dl (32.0-36.5); MEAN CORPUSCULAR VOLUME 96.5 fl (80.0-96.0); PLATELET COUNT, AUTOMATED 260 10^3/uL (150-450); RED BLOOD COUNT 3.18 10^6/uL (4.00-5.40)
[2022-05-03] MEDS: amLODIPine 5 MG TAB PO SCH (08:46)
[2022-05-04 05:42] VITALS: BP 128/68
[2022-05-04] MEDS: HEPARIN SOD (PORCINE) 5000UNITS/ML 1ML VIAL/SYRINGE SQ SCH ×3 (07:02→21:16)
[2022-05-04] MEDS: D5W/0.45% SODIUM CHLORIDE 1,000 ML IV SCH (07:02)
[2022-05-04 09:46] VITALS: BP 135/95
[2022-05-04] MEDS: amLODIPine 5 MG TAB PO SCH (09:54)
[2022-05-04 15:40] LABS: HEMOGLOBIN 10.5 g/dl (12.0-15.5); MEAN CORPUSCULAR HEMOGLOBIN 32.8 pg (27.0-33.0); MEAN CORPUSCULAR HGB CONC 33.9 g/dl (32.0-36.5); MEAN CORPUSCULAR VOLUME 96.9 fl (80.0-96.0); PLATELET COUNT, AUTOMATED 268 10^3/uL (150-450); WHITE BLOOD COUNT 9.2 10^3/uL (4.0-10.0)
[2022-05-05 00:22] VITALS: BP 120/70
[2022-05-05] MEDS: ACETAMINOPHEN 650MG SUPP PR PRN (00:35)
[2022-05-05] MEDS ORDERED: IBUPROFEN 100MG 5ML ORAL SUSP UDC PO ONE (03:00)
[2022-05-05 04:10] VITALS: BP 126/67
[2022-05-05] MEDS: HEPARIN SOD (PORCINE) 5000UNITS/ML 1ML VIAL/SYRINGE SQ SCH ×3 (06:52→21:01)
[2022-05-05] MEDS: amLODIPine 5 MG TAB PO SCH (09:52)
[2022-05-06 05:24] VITALS: BP 120/65
[2022-05-06] MEDS: HEPARIN SOD (PORCINE) 5000UNITS/ML 1ML VIAL/SYRINGE SQ SCH ×3 (05:38→21:26)
[2022-05-06 06:47] LABS: HEMATOCRIT 28.3 % (36.0-47.0); HEMOGLOBIN 9.5 g/dl (12.0-15.5); MEAN CORPUSCULAR HEMOGLOBIN 32.5 pg (27.0-33.0); MEAN CORPUSCULAR HGB CONC 33.6 g/dl (32.0-36.5); MEAN CORPUSCULAR VOLUME 96.9 fl (80.0-96.0); PLATELET COUNT, AUTOMATED 261 10^3/uL (150-450); RED BLOOD COUNT 2.92 10^6/uL (4.00-5.40); WHITE BLOOD COUNT 8.5 10^3/uL (4.0-10.0)
[2022-05-06] MEDS: amLODIPine 5 MG TAB PO SCH (08:47)
[2022-05-07] MEDS: HEPARIN SOD (PORCINE) 5000UNITS/ML 1ML VIAL/SYRINGE SQ SCH (05:49)
[2022-05-07 05:57] VITALS: BP 104/50
[2022-05-07 09:00] VITALS: BP 101/56
[2022-05-07] MEDS: amLODIPine 5 MG TAB PO SCH (09:00)
[2022-05-07] MEDS ORDERED: AMLO1TAB24 PO (12:11)
== END 2022-05-07 14:02 | DRG 177 ==
LOC: M ED 14:51 → EDBD 14:51 → M ED INP 21:23 → ENRESERV 04-24 00:51 → M MSPAV 04-24 01:04 → OBSVTOIN 04-24 07:13
PROVIDERS: ADMIT Internal Medicine; ATTEND Internal Medicine
PROC: XW033E5 Introduction of Remdesivir Anti-infective into Peripheral Vein, Percutaneous Approach, New Technology Group 5 (ICD-10-PCS; 2022-04-24)
PROC: 3E0333Z Introduction of Anti-inflammatory into Peripheral Vein, Percutaneous Approach (ICD-10-PCS; 2022-04-25)
PROC: 009U3ZX Drainage of Spinal Canal, Percutaneous Approach, Diagnostic (ICD-10-PCS; principal; 2022-04-26)
DX: U07.1 COVID-19 (principal); G93.41 Metabolic encephalopathy; Z53.8 Procedure and treatment not carried out for other reasons; R13.10 Dysphagia, unspecified; Z66 Do not resuscitate; G31.83 Neurocognitive disorder with Lewy bodies; F02.80 Dementia in other diseases classified elsewhere, unspecified severity, without behavioral disturbance, psychotic disturbance, mood disturbance, and anxiety; R29.6 Repeated falls; I10 Essential (primary) hypertension; E78.5 Hyperlipidemia, unspecified; Z90.49 Acquired absence of other specified parts of digestive tract; Z79.899 Other long term (current) drug therapy; E87.6 Hypokalemia; E83.42 Hypomagnesemia; I71.21 Aneurysm of the ascending aorta, without rupture

== ENCOUNTER → 2022-05-10 | Outpatient (REF) ==
[~2022-05-10] MED LIST changes: +AMLO1TAB24 PO; +MED REC COMMENT; +OLAN2.5T25 PO
[2022-05-10 08:44] LABS: HEMATOCRIT 33.9 % (36.0-47.0); HEMOGLOBIN 11.1 g/dl (12.0-15.5); MEAN CORPUSCULAR HEMOGLOBIN 32.7 pg (27.0-33.0); MEAN CORPUSCULAR HGB CONC 32.7 g/dl (32.0-36.5); PLATELET COUNT, AUTOMATED 359 10^3/uL (150-450); RED BLOOD COUNT 3.39 10^6/uL (4.00-5.40); WHITE BLOOD COUNT 6.6 10^3/uL (4.0-10.0)
[2022-05-10 09:09] LABS: ALBUMIN 2.9 G/DL (3.2-5.2); ALKALINE PHOSPHATASE 103 U/L (46-116); ALT/SGPT 38 U/L (7.0-40); AST/SGOT 42 U/L (<34); BILIRUBIN,TOTAL 0.7 MG/DL (0.3-1.2); BLOOD UREA NITROGEN 16 MG/DL (9-23); CARBON DIOXIDE LEVEL 28 MMOL/L (20-31); CHLORIDE LEVEL 100 MMOL/L (98-107); CREATININE FOR GFR 0.48 MG/DL (0.55-1.30); GLOMERULAR FILTRATION RATE > 60.0 (>39); GLUCOSE, FASTING 85 MG/DL (74-106); POTASSIUM SERUM 4.4 MMOL/L (3.5-5.1); SODIUM LEVEL 136 MMOL/L (136-145); TOTAL PROTEIN 7.2 G/DL (5.7-8.2)
== END ==
LOC: SKLAB3 07:06
PROVIDERS: ATTEND Internal Medicine
DX: I10 Essential (primary) hypertension (principal)

== ENCOUNTER → 2023-05-25 | Outpatient (REF) | payer MEDICARE, MEDICAID ==
[~2023-05-25] MED LIST changes: +NYST100085 TOP; -NYSTOI TOP; +SENN-111 PO; -SENN18TA PO
[2023-05-25 12:07] LABS: HEMATOCRIT 40.1 % (36.0-47.0); HEMOGLOBIN 13.5 g/dl (12.0-15.5); MEAN CORPUSCULAR HEMOGLOBIN 30.5 pg (27.0-33.0); MEAN CORPUSCULAR HGB CONC 33.7 g/dl (32.0-36.5); MEAN CORPUSCULAR VOLUME 90.7 fl (80.0-96.0); PLATELET COUNT, AUTOMATED 296 10^3/uL (150-450); RED BLOOD COUNT 4.42 10^6/uL (4.00-5.40); WHITE BLOOD COUNT 7.4 10^3/uL (4.0-10.0)
[2023-05-25 12:35] LABS: ALBUMIN 3.1 G/DL (3.2-5.2); ALKALINE PHOSPHATASE 70 U/L (46-116); ALT/SGPT < 9 U/L (7.0-40); AST/SGOT 18 U/L (<34); BILIRUBIN,TOTAL 0.6 MG/DL (0.3-1.2); BLOOD UREA NITROGEN 24 MG/DL (9-23); CALCIUM LEVEL 9.2 MG/DL (8.3-10.6); CARBON DIOXIDE LEVEL 23 MMOL/L (20-31); CHLORIDE LEVEL 104 MMOL/L (98-107); CREATININE FOR GFR 0.78 MG/DL (0.55-1.30); GLOMERULAR FILTRATION RATE > 60.0 (>39); GLUCOSE, FASTING 92 MG/DL (74-106); POTASSIUM SERUM 4.3 MMOL/L (3.5-5.1); SODIUM LEVEL 135 MMOL/L (136-145); TOTAL PROTEIN 6.9 G/DL (5.7-8.2)
== END ==
LOC: SKLAB3 09:27
PROVIDERS: ATTEND Nurse Practitioner Family
DX: I10 Essential (primary) hypertension (principal)

== ENCOUNTER → 2023-05-26 | Outpatient (REF) | payer MEDICARE, MEDICAID | LOC: SKLAB3 11:13 | PROVIDERS: ATTEND Nurse Practitioner Family | DX: R09.02 Hypoxemia (principal) ==

== ENCOUNTER → 2023-08-23 | Outpatient (REF) | payer MEDICARE, MEDICAID ==
[~2023-08-23] MED LIST changes: +MEMA10TA PO; -MEMA10TA19 PO
[2023-08-23 08:25] LABS: BASO % 0.5 % (0.0-1.0); EOS # 0.1 10^3/uL (0.0-0.5); EOS % 1.2 % (0.0-3.0); HEMATOCRIT 42.1 % (36.0-47.0); HEMOGLOBIN 14.1 g/dl (12.0-15.5); LYMPH # 2.2 10^3/uL (1.5-5.0); LYMPH % 26.4 % (24.0-44.0); MEAN CORPUSCULAR HEMOGLOBIN 30.9 pg (27.0-33.0); MEAN CORPUSCULAR HGB CONC 33.5 g/dl (32.0-36.5); MEAN CORPUSCULAR VOLUME 92.1 fl (80.0-96.0); MONO # 0.5 10^3/uL (0.0-0.8); MONO % 6.4 % (2.0-8.0); NEUTROPHILS # 5.3 10^3/uL (1.5-8.5); NEUTROPHILS % 65.1 % (36.0-66.0); PLATELET COUNT, AUTOMATED 277 10^3/uL (150-450); RED BLOOD COUNT 4.57 10^6/uL (4.00-5.40); WHITE BLOOD COUNT 8.1 10^3/uL (4.0-10.0)
[2023-08-23 08:55] LABS: BLOOD UREA NITROGEN 15 MG/DL (9-23); CALCIUM LEVEL 8.9 MG/DL (8.3-10.6); CARBON DIOXIDE LEVEL 26 MMOL/L (20-31); CHLORIDE LEVEL 106 MMOL/L (98-107); GLOMERULAR FILTRATION RATE > 60.0 (>39); GLUCOSE, FASTING 99 MG/DL (74-106); POTASSIUM SERUM 3.4 MMOL/L (3.5-5.1); SODIUM LEVEL 139 MMOL/L (136-145)
[2023-08-23 08:57] LABS: THYROID STIMULATING HORMONE 4.365 uIU/ML (0.55-4.78)
== END ==
LOC: SKLAB3 07:00
PROVIDERS: ATTEND Internal Medicine
DX: R53.83 Other fatigue (principal); I10 Essential (primary) hypertension

== ENCOUNTER → 2023-09-02 | Outpatient (REF) | payer MEDICARE, MEDICAID ==
[2023-09-02 10:41] LABS: BASO # 0.1 10^3/uL (0.0-0.2); BASO % 0.6 % (0.0-1.0); EOS # 0.1 10^3/uL (0.0-0.5); EOS % 1.2 % (0.0-3.0); LYMPH # 2.8 10^3/uL (1.5-5.0); LYMPH % 33.7 % (24.0-44.0); MEAN CORPUSCULAR HEMOGLOBIN 31.7 pg (27.0-33.0); MEAN CORPUSCULAR VOLUME 93.1 fl (80.0-96.0); MONO # 0.5 10^3/uL (0.0-0.8); MONO % 6.5 % (2.0-8.0); NEUTROPHILS # 4.8 10^3/uL (1.5-8.5); NEUTROPHILS % 57.8 % (36.0-66.0); PLATELET COUNT, AUTOMATED 392 10^3/uL (150-450); RED BLOOD COUNT 5.05 10^6/uL (4.00-5.40); WHITE BLOOD COUNT 8.3 10^3/uL (4.0-10.0)
[2023-09-02 11:19] LABS: ALBUMIN 3.6 G/DL (3.2-5.2); ALKALINE PHOSPHATASE 98 U/L (46-116); ALT/SGPT 11 U/L (7.0-40); AST/SGOT 22 U/L (<34); BILIRUBIN,TOTAL 0.8 MG/DL (0.3-1.2); BLOOD UREA NITROGEN 15 MG/DL (9-23); CALCIUM LEVEL 9.7 MG/DL (8.3-10.6); CARBON DIOXIDE LEVEL 25 MMOL/L (20-31); CHLORIDE LEVEL 106 MMOL/L (98-107); GLOMERULAR FILTRATION RATE > 60.0 (>39); GLUCOSE, FASTING 102 MG/DL (74-106); POTASSIUM SERUM 4.2 MMOL/L (3.5-5.1); SODIUM LEVEL 140 MMOL/L (136-145); TOTAL PROTEIN 7.8 G/DL (5.7-8.2)
== END ==
LOC: SKLAB3 09:31
PROVIDERS: ATTEND Internal Medicine
DX: R41.82 Altered mental status, unspecified (principal)

== ENCOUNTER → 2023-09-05 | Outpatient (REF) | payer MEDICARE, MEDICAID ==
[2023-09-05 07:45] LABS: HEMATOCRIT 42.7 % (36.0-47.0); HEMOGLOBIN 14.4 g/dl (12.0-15.5); MEAN CORPUSCULAR HEMOGLOBIN 31.2 pg (27.0-33.0); MEAN CORPUSCULAR HGB CONC 33.7 g/dl (32.0-36.5); MEAN CORPUSCULAR VOLUME 92.4 fl (80.0-96.0); PLATELET COUNT, AUTOMATED 313 10^3/uL (150-450); RED BLOOD COUNT 4.62 10^6/uL (4.00-5.40); WHITE BLOOD COUNT 10.2 10^3/uL (4.0-10.0)
[2023-09-05 08:17] LABS: CALCIUM LEVEL 8.6 MG/DL (8.3-10.6); CREATININE FOR GFR 1.01 MG/DL (0.55-1.30); GLOMERULAR FILTRATION RATE 56.7 (>39); POTASSIUM SERUM 3.9 MMOL/L (3.5-5.1)
== END ==
LOC: SKLAB3 07:18
PROVIDERS: ATTEND Internal Medicine
DX: I10 Essential (primary) hypertension (principal)

== ENCOUNTER → 2023-10-03 | Outpatient (REF) | payer MEDICARE, MEDICAID ==
[2023-10-03 12:36] LABS: BASO % 0.5 % (0.0-1.0); EOS # 0.1 10^3/uL (0.0-0.5); EOS % 1.5 % (0.0-3.0); HEMATOCRIT 41.9 % (36.0-47.0); HEMOGLOBIN 14.1 g/dl (12.0-15.5); LYMPH # 2.1 10^3/uL (1.5-5.0); LYMPH % 27.9 % (24.0-44.0); MEAN CORPUSCULAR HEMOGLOBIN 31.3 pg (27.0-33.0); MEAN CORPUSCULAR HGB CONC 33.7 g/dl (32.0-36.5); MEAN CORPUSCULAR VOLUME 92.9 fl (80.0-96.0); MONO # 0.6 10^3/uL (0.0-0.8); MONO % 7.8 % (2.0-8.0); NEUTROPHILS # 4.6 10^3/uL (1.5-8.5); PLATELET COUNT, AUTOMATED 293 10^3/uL (150-450); RED BLOOD COUNT 4.51 10^6/uL (4.00-5.40); WHITE BLOOD COUNT 7.4 10^3/uL (4.0-10.0)
[2023-10-03 13:06] LABS: ALKALINE PHOSPHATASE 85 U/L (46-116); ALT/SGPT 14 U/L (7.0-40); AST/SGOT 23 U/L (<34); BILIRUBIN,TOTAL 0.5 MG/DL (0.3-1.2); BLOOD UREA NITROGEN 19 MG/DL (9-23); CALCIUM LEVEL 9.3 MG/DL (8.3-10.6); CARBON DIOXIDE LEVEL 29 MMOL/L (20-31); CHLORIDE LEVEL 105 MMOL/L (98-107); CREATININE FOR GFR 0.69 MG/DL (0.55-1.30); GLOMERULAR FILTRATION RATE > 60.0 (>39); GLUCOSE, FASTING 90 MG/DL (74-106); POTASSIUM SERUM 4.2 MMOL/L (3.5-5.1); SODIUM LEVEL 140 MMOL/L (136-145); TOTAL PROTEIN 6.8 G/DL (5.7-8.2)
== END ==
LOC: SKLAB3 08:58
PROVIDERS: ATTEND Internal Medicine
DX: R09.02 Hypoxemia (principal); I51.7 Cardiomegaly

== ENCOUNTER → 2024-01-25 | Outpatient (REF) | payer MEDICARE, MEDICAID ==
[~2024-01-25] MED LIST changes: -OLAN2.5T25 PO; +OLAN2.5T53 PO; -SENN-111 PO; +SENN-165 PO
[2024-01-25 14:28] LABS: BASO % 0.1 % (0.0-1.0); EOS % 0.1 % (0.0-3.0); HEMATOCRIT 43.9 % (36.0-47.0); HEMOGLOBIN 14.5 g/dl (12.0-15.5); LYMPH # 1.5 10^3/uL (1.5-5.0); LYMPH % 11.1 % (24.0-44.0); MEAN CORPUSCULAR VOLUME 96.9 fl (80.0-96.0); MONO # 0.6 10^3/uL (0.0-0.8); MONO % 4.3 % (2.0-8.0); NEUTROPHILS # 11.3 10^3/uL (1.5-8.5); PLATELET COUNT, AUTOMATED 306 10^3/uL (150-450); RED BLOOD COUNT 4.53 10^6/uL (4.00-5.40); WHITE BLOOD COUNT 13.5 10^3/uL (4.0-10.0)
[2024-01-25 15:35] LABS: ALBUMIN 3.1 G/DL (3.2-5.2); ALKALINE PHOSPHATASE 105 U/L (35-104); ALT/SGPT 24 U/L (7.0-40); AST/SGOT 46 U/L (<34); BILIRUBIN,TOTAL 0.8 MG/DL (0.3-1.2); BLOOD UREA NITROGEN 42 MG/DL (9-23); CARBON DIOXIDE LEVEL 24 MMOL/L (20-31); CHLORIDE LEVEL 112 MMOL/L (98-107); CREATININE FOR GFR 0.77 MG/DL (0.55-1.30); GLOMERULAR FILTRATION RATE > 60.0 (>39); GLUCOSE, FASTING 164 MG/DL (74-106); POTASSIUM SERUM 3.7 MMOL/L (3.5-5.1); SODIUM LEVEL 146 MMOL/L (136-145); TOTAL PROTEIN 8.2 G/DL (5.7-8.2)
[2024-01-25 16:20] LABS: AMORPHOUS SEDIMENT SMALL (NEGATIVE); APPEARANCE, URINE HAZY (CLEAR); BACTERIA, URINE AUTO 1+ (NEGATIVE); BILIRUBIN, URINE AUTO NEGATIVE (NEGATIVE); BLOOD, URINE BLOOD NEGATIVE (NEGATIVE); COLOR, URINE AMBER (YELLOW); GLUCOSE, URINE (UA) AUTO NEGATIVE (NEGATIVE); KETONE, URINE AUTO NEGATIVE (NEGATIVE); LEUKOCYTE ESTERASE, URINE AUTO NEGATIVE (NEGATIVE); MUCUS, URINE MODERATE (NEGATIVE); NITRITE, URINE AUTO NEGATIVE (NEGATIVE); PROTEIN, URINE AUTO 2+ mg/dL (NEGATIVE); RBC, URINE AUTO 1 /HPF (0-3); SPECIFIC GRAVITY URINE AUTO 1.028 (1.002-1.035); SQUAMOUS EPITHELIAL CELL UR AU 6 /HPF (0-6); UROBILINOGEN, URINE AUTO 0.2 mg/dL (0.0-2.0); WBC, URINE AUTO 2 /HPF (0-3)
== END ==
LOC: SKLAB3 13:28
PROVIDERS: ATTEND Internal Medicine
DX: R53.83 Other fatigue (principal); R41.82 Altered mental status, unspecified

== ENCOUNTER → 2024-01-27 | Outpatient (REF) | payer MEDICARE, MEDICAID ==
[2024-01-27 12:05] LABS: HEMOGLOBIN 12.7 g/dl (12.0-15.5); MEAN CORPUSCULAR HGB CONC 34.3 g/dl (32.0-36.5); MEAN CORPUSCULAR VOLUME 93.2 fl (80.0-96.0); PLATELET COUNT, AUTOMATED 259 10^3/uL (150-450); RED BLOOD COUNT 3.97 10^6/uL (4.00-5.40); WHITE BLOOD COUNT 10.8 10^3/uL (4.0-10.0)
[2024-01-27 12:28] LABS: BLOOD UREA NITROGEN 16 MG/DL (9-23); CALCIUM LEVEL 8.4 MG/DL (8.3-10.6); CARBON DIOXIDE LEVEL 26 MMOL/L (20-31); CHLORIDE LEVEL 107 MMOL/L (98-107); CREATININE FOR GFR 0.62 MG/DL (0.55-1.30); GLOMERULAR FILTRATION RATE > 60.0 (>39); GLUCOSE, FASTING 111 MG/DL (74-106); POTASSIUM SERUM 3.2 MMOL/L (3.5-5.1); SODIUM LEVEL 138 MMOL/L (136-145)
== END ==
LOC: SKLAB3 10:52
PROVIDERS: ATTEND Internal Medicine
DX: E86.0 Dehydration (principal)

== ENCOUNTER → 2024-02-02 | Outpatient (REF) | payer MEDICARE, MEDICAID ==
[2024-02-02 15:04] LABS: BASO % 0.3 % (0.0-1.0); EOS # 0.2 10^3/uL (0.0-0.5); EOS % 1.6 % (0.0-3.0); HEMATOCRIT 38.3 % (36.0-47.0); HEMOGLOBIN 12.5 g/dl (12.0-15.5); LYMPH # 2.1 10^3/uL (1.5-5.0); LYMPH % 19.4 % (24.0-44.0); MEAN CORPUSCULAR HEMOGLOBIN 31.4 pg (27.0-33.0); MEAN CORPUSCULAR HGB CONC 32.6 g/dl (32.0-36.5); MEAN CORPUSCULAR VOLUME 96.2 fl (80.0-96.0); MONO # 0.5 10^3/uL (0.0-0.8); MONO % 4.8 % (2.0-8.0); NEUTROPHILS % 73.4 % (36.0-66.0); PLATELET COUNT, AUTOMATED 334 10^3/uL (150-450); RED BLOOD COUNT 3.98 10^6/uL (4.00-5.40); WHITE BLOOD COUNT 10.9 10^3/uL (4.0-10.0)
== END ==
LOC: SKLAB3 14:20
PROVIDERS: ATTEND Internal Medicine
DX: N39.0 Urinary tract infection, site not specified (principal)

== ENCOUNTER → 2024-02-06 | Outpatient (REF) | payer MEDICARE, MEDICAID ==
[2024-02-06 13:18] LABS: BASO % 0.2 % (0.0-1.0); EOS % 0.3 % (0.0-3.0); HEMATOCRIT 45.2 % (36.0-47.0); HEMOGLOBIN 14.3 g/dl (12.0-15.5); LYMPH # 1.8 10^3/uL (1.5-5.0); LYMPH % 16.6 % (24.0-44.0); MEAN CORPUSCULAR HEMOGLOBIN 31.1 pg (27.0-33.0); MEAN CORPUSCULAR HGB CONC 31.6 g/dl (32.0-36.5); MEAN CORPUSCULAR VOLUME 98.3 fl (80.0-96.0); MONO # 0.5 10^3/uL (0.0-0.8); MONO % 4.8 % (2.0-8.0); NEUTROPHILS # 8.5 10^3/uL (1.5-8.5); NEUTROPHILS % 77.6 % (36.0-66.0); PLATELET COUNT, AUTOMATED 403 10^3/uL (150-450)
[2024-02-06 13:43] LABS: ALBUMIN 2.7 G/DL (3.2-5.2); ALKALINE PHOSPHATASE 105 U/L (35-104); ALT/SGPT 25 U/L (7.0-40); AST/SGOT 36 U/L (<34); BILIRUBIN,TOTAL 0.7 MG/DL (0.3-1.2); BLOOD UREA NITROGEN 32 MG/DL (9-23); CALCIUM LEVEL 9.4 MG/DL (8.3-10.6); CARBON DIOXIDE LEVEL 23 MMOL/L (20-31); CHLORIDE LEVEL 113 MMOL/L (98-107); GLOMERULAR FILTRATION RATE > 60.0 (>39); GLUCOSE, FASTING 95 MG/DL (74-106); POTASSIUM SERUM 4.4 MMOL/L (3.5-5.1); SODIUM LEVEL 148 MMOL/L (136-145); TOTAL PROTEIN 8.2 G/DL (5.7-8.2)
== END ==
LOC: SKLAB3 11:13
PROVIDERS: ATTEND Internal Medicine
DX: R53.83 Other fatigue (principal)

== ENCOUNTER → 2024-02-07 | Outpatient (REF) | payer MEDICARE, MEDICAID ==
[2024-02-07 13:00] LABS: BLOOD UREA NITROGEN 27 MG/DL (9-23); CALCIUM LEVEL 8.5 MG/DL (8.3-10.6); CARBON DIOXIDE LEVEL 23 MMOL/L (20-31); CHLORIDE LEVEL 106 MMOL/L (98-107); GLOMERULAR FILTRATION RATE > 60.0 (>39); GLUCOSE, FASTING 135 MG/DL (74-106); POTASSIUM SERUM 3.4 MMOL/L (3.5-5.1); SODIUM LEVEL 140 MMOL/L (136-145)
== END ==
LOC: SKLAB3 07:03
PROVIDERS: ATTEND Internal Medicine
DX: E87.0 Hyperosmolality and hypernatremia (principal)

== ENCOUNTER → 2024-03-09 | Outpatient (REF) | payer MEDICARE, MEDICAID | LOC: SKLAB3 13:36 | PROVIDERS: ATTEND Internal Medicine | DX: R50.9 Fever, unspecified (principal) ==